=== PATIENT | male | born 1965 | race Caucasian/White ===

== ENCOUNTER 2023-02-15 16:57 | Inpatient (IN) | payer OTHER, SELFPAY ==
[2023-02-15] MEDS ORDERED: Furosemide 40 MG/4 ML VIAL ONE (17:57)
[2023-02-15 18:05] LABS: #Basophils 0.1 thou/uL (0.0-0.2); #Eosinphils 0.3 thou/uL (0.0-0.7); #Monocytes 0.6 thou/uL (0.11-0.59); #Neutrophils 4.8 thou/uL (1.40-6.50); %Basophils 0.9 % (0.0-1.0); %Eosinophils 4.9 % (0.0-10.0); %Lymphocytes 10.8 % (21.0-51.0); %Monocytes 8.8 % (0.0-10.0); %Neutrophils 74.1 % (42.0-75.0); Hematocrit 24.6 % (42.0-52.0); Hemoglobin 7.8 g/dL (14.0-18.0); Mean Corpuscular HGB CONC 31.7 g/dL (32.0-36.0); Mean Corpuscular Hemoglobin 25.8 pg (27.0-31.0); Mean Corpuscular Volume 81.5 fl (78.0-98.0); Platelet Count 295 10x3/uL (130-400); RBC Distribution Width 16.7 % (11.5-14.5); Red Blood Cell (RBC) Count 3.02 mill/uL (4.70-6.10); White Blood Cell (WBC) Count 6.5 10x3/uL (4.8-10.8)
[2023-02-15 18:43] LABS: ALT (SGPT) 15 U/L (8-55); AST (SGOT) 23 U/L (5-34); Albumin 3.4 g/dL (3.5-5.0); Alkaline Phosphatase 118 U/L (40-110); Anion Gap 20 mmol/L (10-20); BUN (Urea Nitrogen) 97 mg/dL (8.4-25.7); Bilirubin, Total 0.4 mg/dL (0.2-1.2); Calc. Creatinine Clearance 0 mL/min (70-130); Calcium 8.3 mg/dL (7.8-10.44); Carbon Dioxide 12 mmol/L (22-29); Chloride 114 mmol/L (98-107); Estimated GFR 11; Glucose 150 mg/dL (70-105); Potassium 5.2 mmol/L (3.5-5.1); Protein, Total 6.4 g/dL (6.0-8.3); Sodium 141 mmol/L (136-145)
[2023-02-15 19:30] LABS: Bacteria/HPF None Seen HPF (None Seen); Bilirubin Negative (Negative); Blood, Urine 1+ (Negative); CAUTI Indications for Culture Pelvic or flank pain; Clarity Clear (Clear); Glucose, Urine (Dipstick) 200 mg/dL (Negative); Ketone, Urine Negative (Negative); Leukocyte Negative Leu/uL (Negative); Nitrite Negative (Negative); Protein, Urine (Dipstick) 100 mg/dL (Neg-Trace); RBC/HPF 0-3 HPF (0-3); Specific Gravity, Urine 1.007 (1.002-1.036); Squamous Epithelial None Seen HPF (0-3); Urobilinogen Normal mg/dL (Less than 2); WBC/HPF 0-3 HPF (0-3); pH, Urine 5.5 (5.0-9.0)
[2023-02-15 19:44] LABS: Urine Culture Reflex No No
[2023-02-15] MEDS ORDERED: Ondansetron PF 4 MG/2 ML Vial IVP PRN (20:29)
[2023-02-15] MEDS ORDERED: Ondansetron ODT 4 MG TAB PO PRN (20:29)
[2023-02-15] MEDS ORDERED: Dextrose 50% Abboject 50 ML SYRINGE SLOW IVP PRN (20:29)
[2023-02-15] MEDS ORDERED: Glucagon 1 MG/ML KIT IM PRN (20:29)
[2023-02-15] MEDS ORDERED: Dextrose 5% in Water 1,000 ML IV PRN (20:29)
[2023-02-15] MEDS ORDERED: Acetaminophen 325 MG TAB PO PRN (20:29)
[2023-02-15] MEDS ORDERED: Furosemide 100 MG/10 ML VIAL SLOW IVP SCH (21:00)
[2023-02-15 21:24] LABS: Troponin I 0.229 ng/mL (< 0.028)
[2023-02-15 21:49] VITALS: BMI 36.8
[2023-02-15] MEDS: Heparin 5,000 UNITS/ML VIAL SC SCH (22:47)
[2023-02-15] MEDS ORDERED: Furosemide 40 MG/4 ML VIAL SLOW IVP SCH (23:30)
[2023-02-15 23:37] LABS: Creatinine, Urine 52.24 mg/dL (63-166)
[2023-02-16 05:08] LABS: Hemoglobin A1c 6.5 % (4.0-6.0)
[2023-02-16 05:32] LABS: Anion Gap 16 mmol/L (10-20); BUN (Urea Nitrogen) 96 mg/dL (8.4-25.7); Calc. Creatinine Clearance 20 mL/min (70-130); Calcium 8.5 mg/dL (7.8-10.44); Carbon Dioxide 14 mmol/L (22-29); Cardiac Risk 4.1 (Less than 4.5); Chloride 114 mmol/L (98-107); Cholesterol 116 mg/dl (< 200 Desired); Estimated GFR 11; Glucose 115 mg/dL (70-105); HDL Cholesterol 28 mg/dL (>60 Neg Risk); LDL Cholesterol, Calculated 75 mg/dL; Potassium 4.3 mmol/L (3.5-5.1); Sodium 140 mmol/L (136-145); Triglycerides 67 mg/dL (Less than 150)
[2023-02-16] MEDS ORDERED: Furosemide 100 MG/10 ML VIAL SLOW IVP SCH (06:00)
[2023-02-16] MEDS: Furosemide 40 MG/4 ML VIAL SLOW IVP SCH ×2 (06:31→13:51)
[2023-02-16] MEDS: Heparin 5,000 UNITS/ML VIAL SC SCH ×3 (09:35→21:39)
[2023-02-16] MEDS ORDERED: Epoetin (ESRD) 10,000 UNITS/ML VIAL SC SCH (11:15)
[2023-02-16] MEDS ORDERED: Albumin 25% 25 GM/100 ML BOT IVPB SCH (11:15)
[2023-02-16] MEDS ORDERED: hydrALAZINE 20 MG/ML VIAL SLOW IVP PRN (11:22)
[2023-02-16] MEDS ORDERED: Carvedilol 3.125 MG TAB PO SCH (11:30)
[2023-02-16 11:58] LABS: Iron Binding Capacity, Total 376 mcg/dL (261-462)
[2023-02-16 11:59] LABS: Iron 21 ug/dL (65-175)
[2023-02-16] MEDS: Ergocalciferol 1.25 MG(50,000 UNITS) CAP PO SCH (13:33)
[2023-02-16 13:35] LABS: Creatinine, Urine 24.54 mg/dL (63-166)
[2023-02-16] MEDS: HumaLOG 300 UNITS/3 ML VIAL SC PRN ×2 (13:51→21:38)
[2023-02-16] MEDS: EPOETIN ALFA-EPBX (ESRD) 10,000 UNITS/ML VIAL SC SCH (15:18)
[2023-02-16] MEDS: Sodium Bicarbonate Tab 325 MG TAB PO SCH ×2 (15:19→21:38)
[2023-02-16 15:47] LABS: ALT (SGPT) 13 U/L (8-55); AST (SGOT) 12 U/L (5-34); Albumin 3.4 g/dL (3.5-5.0); Alkaline Phosphatase 108 U/L (40-110); Anion Gap 15 mmol/L (10-20); BUN (Urea Nitrogen) 94 mg/dL (8.4-25.7); Bilirubin, Total 0.6 mg/dL (0.2-1.2); Calc. Creatinine Clearance 19 mL/min (70-130); Calcium 8.4 mg/dL (7.8-10.44); Carbon Dioxide 15 mmol/L (22-29); Chloride 112 mmol/L (98-107); Estimated GFR 10; Globulin 2.6 g/dL (2.4-3.5); Glucose 149 mg/dL (70-105); Potassium 4.3 mmol/L (3.5-5.1); Sodium 138 mmol/L (136-145)
[2023-02-16] MEDS: Carvedilol 3.125 MG TAB PO SCH (16:11)
[2023-02-17] MEDS: Furosemide 40 MG/4 ML VIAL SLOW IVP SCH ×2 (06:50→15:01)
[2023-02-17 08:04] LABS: Anion Gap 16 mmol/L (10-20); BUN (Urea Nitrogen) 98 mg/dL (8.4-25.7); Calc. Creatinine Clearance 18 mL/min (70-130); Calcium 8.8 mg/dL (7.8-10.44); Carbon Dioxide 15 mmol/L (22-29); Chloride 112 mmol/L (98-107); Estimated GFR 10; Glucose 90 mg/dL (70-105); Potassium 4.3 mmol/L (3.5-5.1); Sodium 139 mmol/L (136-145)
[2023-02-17] MEDS: Heparin 5,000 UNITS/ML VIAL SC SCH ×3 (08:48→20:20)
[2023-02-17] MEDS: Ferrous Sulfate 325 MG TAB PO SCH (08:48)
[2023-02-17] MEDS: Carvedilol 3.125 MG TAB PO SCH ×2 (08:48→17:22)
[2023-02-17] MEDS: Sodium Bicarbonate Tab 325 MG TAB PO SCH ×2 (08:48→15:01)
[2023-02-17 11:15] LABS: #Basophils 0.1 thou/uL (0.0-0.2); #Eosinphils 0.4 thou/uL (0.0-0.7); #Monocytes 0.6 thou/uL (0.11-0.59); #Neutrophils 3.9 thou/uL (1.40-6.50); %Basophils 1.1 % (0.0-1.0); %Eosinophils 6.5 % (0.0-10.0); %Lymphocytes 18.4 % (21.0-51.0); %Monocytes 10.4 % (0.0-10.0); %Neutrophils 63.4 % (42.0-75.0); Hematocrit 26.8 % (42.0-52.0); Hemoglobin 8.3 g/dL (14.0-18.0); Mean Corpuscular Hemoglobin 25.5 pg (27.0-31.0); Mean Corpuscular Volume 82.5 fl (78.0-98.0); Mean Platelet Volume 9.3 fL (7.4-10.4); Platelet Count 303 10x3/uL (130-400); RBC Distribution Width 16.5 % (11.5-14.5); Red Blood Cell (RBC) Count 3.25 mill/uL (4.70-6.10); White Blood Cell (WBC) Count 6.1 10x3/uL (4.8-10.8)
[2023-02-17 13:57] LABS: Protein, Urine 69 mg/dL (1-14)
[2023-02-17 14:06] LABS: Protein - 24 Hr 2208 mg/24 hr (Less than 300); Urine Total Volume 3200 mL (250-2400)
[2023-02-17] MEDS ORDERED: CEFAZOLIN 2 GM in Sodium Chloride 0.9% 100 ML IVPB SCH (14:30)
[2023-02-17] MEDS ORDERED: Tuberculin PPD 0.1 ML VIAL I-DERMAL SCH (15:15)
[2023-02-18 05:12] LABS: #Basophils 0.1 thou/uL (0.0-0.2); #Eosinphils 0.3 thou/uL (0.0-0.7); #Monocytes 0.5 thou/uL (0.11-0.59); #Neutrophils 2.8 thou/uL (1.40-6.50); %Basophils 1.3 % (0.0-1.0); %Eosinophils 7.3 % (0.0-10.0); %Lymphocytes 19.9 % (21.0-51.0); %Monocytes 11.7 % (0.0-10.0); %Neutrophils 59.6 % (42.0-75.0); Hematocrit 24.3 % (42.0-52.0); Hemoglobin 7.6 g/dL (14.0-18.0); Mean Corpuscular HGB CONC 31.3 g/dL (32.0-36.0); Mean Corpuscular Hemoglobin 25.5 pg (27.0-31.0); Mean Corpuscular Volume 81.5 fl (78.0-98.0); Mean Platelet Volume 9.1 fL (7.4-10.4); Platelet Count 296 10x3/uL (130-400); RBC Distribution Width 16.6 % (11.5-14.5); Red Blood Cell (RBC) Count 2.98 mill/uL (4.70-6.10); White Blood Cell (WBC) Count 4.6 10x3/uL (4.8-10.8)
[2023-02-18] MEDS: Furosemide 40 MG/4 ML VIAL SLOW IVP SCH ×2 (05:26→15:48)
[2023-02-18 05:46] LABS: Anion Gap 15 mmol/L (10-20); BUN (Urea Nitrogen) 102 mg/dL (8.4-25.7); Calc. Creatinine Clearance 16 mL/min (70-130); Calcium 8.7 mg/dL (7.8-10.44); Carbon Dioxide 18 mmol/L (22-29); Chloride 111 mmol/L (98-107); Estimated GFR 9; Glucose 129 mg/dL (70-105); Potassium 4.2 mmol/L (3.5-5.1); Sodium 140 mmol/L (136-145)
[2023-02-18 06:05] LABS: HBSAB Concentration Less than 8.00 mIU/mL; HBSAg Index 0.17 S/CO (0-0.99); Hep B Core Total Ab Non-Reactive (NonReactive); Hep B Surf AB Non-Reactive (NonReactive); Hep B Surf Ag Non-Reactive S/CO (NonReactive); Hep C IgG Ab Non-Reactive S/CO (NonReactive); Hep C Index 0.06 S/CO (0-0.79)
[2023-02-18] MEDS ORDERED: Sevoflurane 250 ML INH ANEST BOTTLE ONE (07:20)
[2023-02-18] MEDS: Carvedilol 3.125 MG TAB PO SCH (10:37)
[2023-02-18] MEDS: Heparin 5,000 UNITS/ML VIAL SC SCH ×3 (10:37→21:11)
[2023-02-18] MEDS ORDERED: Lidocaine 1% PF 5 ML VIAL ONE ×2 (10:42→11:19)
[2023-02-18] MEDS ORDERED: Ondansetron PF 4 MG/2 ML Vial ONE ×2 (10:42→11:19)
[2023-02-18] MEDS ORDERED: PROPOFOL 20 ML ONE (10:42)
[2023-02-18] MEDS ORDERED: fentaNYL 50 mcg/mL 1 mL Vial ONE (10:43)
[2023-02-18] MEDS ORDERED: Heparin 10,000 UNITS/ 10 ML VIAL ONE (10:57)
[2023-02-18] MEDS ORDERED: Bupivacaine 0.25% HCL 30 ML VIAL ONE (10:57)
[2023-02-18] MEDS ORDERED: EPINEPHrine 1 MG/ML VIAL ONE (10:57)
[2023-02-18] MEDS ORDERED: Lidocaine 2% PF 5 ML VIAL ONE (10:58)
[2023-02-18] MEDS ORDERED: CEFAZOLIN 2 GM VIAL ONE (11:09)
[2023-02-18] MEDS ORDERED: PHENYLEPHRINE-NS 100 MCG/ML 10 ML SYRINGE ONE ×2 (11:09→11:19)
[2023-02-18] MEDS ORDERED: Sodium Chloride 0.9% 100 ML ONE (11:09)
[2023-02-18] MEDS ORDERED: ePHEDrine Sulfate 50 MG/10 ML VIAL ONE ×2 (11:19→11:35)
[2023-02-18] MEDS ORDERED: PROPOFOL 200 MG/20 ML VIAL ONE (11:19)
[2023-02-18] MEDS: Aspirin 81 mg Enteric Coated Tablet PO SCH (13:28)
[2023-02-18] MEDS: Ferrous Sulfate 325 MG TAB PO SCH (13:28)
[2023-02-19 05:13] LABS: Anion Gap 18 mmol/L (10-20); BUN (Urea Nitrogen) 84 mg/dL (8.4-25.7); Calc. Creatinine Clearance 18 mL/min (70-130); Calcium 8.9 mg/dL (7.8-10.44); Carbon Dioxide 18 mmol/L (22-29); Chloride 110 mmol/L (98-107); Estimated GFR 10; Glucose 122 mg/dL (70-105); Potassium 4.7 mmol/L (3.5-5.1); Sodium 141 mmol/L (136-145)
[2023-02-19] MEDS: Furosemide 40 MG/4 ML VIAL SLOW IVP SCH (05:43)
[2023-02-19 08:41] LABS: #Basophils 0.1 thou/uL (0.0-0.2); #Eosinphils 0.5 thou/uL (0.0-0.7); #Monocytes 0.9 thou/uL (0.11-0.59); #Neutrophils 6.4 thou/uL (1.40-6.50); %Basophils 0.9 % (0.0-1.0); %Eosinophils 5.3 % (0.0-10.0); %Lymphocytes 9.9 % (21.0-51.0); %Monocytes 10.2 % (0.0-10.0); %Neutrophils 73.5 % (42.0-75.0); Hematocrit 27.5 % (42.0-52.0); Hemoglobin 8.6 g/dL (14.0-18.0); Mean Corpuscular HGB CONC 31.3 g/dL (32.0-36.0); Mean Corpuscular Hemoglobin 25.8 pg (27.0-31.0); Mean Corpuscular Volume 82.6 fl (78.0-98.0); Mean Platelet Volume 9.6 fL (7.4-10.4); Platelet Count 344 10x3/uL (130-400); RBC Distribution Width 16.6 % (11.5-14.5); Red Blood Cell (RBC) Count 3.33 mill/uL (4.70-6.10); White Blood Cell (WBC) Count 8.7 10x3/uL (4.8-10.8)
[2023-02-19] MEDS ORDERED: Senokot 8.6 MG TAB PO PRN (09:01)
[2023-02-19] MEDS ORDERED: Polyethylene Glycol 3350 17 GM Packet PO PRN (09:01)
[2023-02-19 09:18] LABS: Kappa Lambda Light Chain Ratio 2.17 (0.26-1.65); Kappa Light Chains 89.5 mg/L (3.3-19.4); Lambda Light Chain 41.3 mg/L (5.7-26.3)
[2023-02-19] MEDS: Heparin 5,000 UNITS/ML VIAL SC SCH ×3 (09:36→21:08)
[2023-02-19] MEDS: Aspirin 81 mg Enteric Coated Tablet PO SCH (12:14)
[2023-02-19] MEDS: Ferrous Sulfate 325 MG TAB PO SCH (12:14)
[2023-02-19] MEDS: Iron, Sodium Ferric Gluconate 250 MG in Sodium Chloride 0.9% 250 ML 250 ML IVPB SCH (12:15)
[2023-02-19] MEDS ORDERED: READ PPD TEST SITE PO SCH (15:15)
[2023-02-19 19:37] LABS: Cytoplasmic (C-ANCA) <1:20 titer (Neg:<1:20); Glomerular Basmt Membrane ABS Less than 0.2 units (0.0-0.9); Myeloperoxidase AutoAbs <0.2 units (0.0-0.9); Perinuclear (P-ANCA) <1:20 titer (Neg:<1:20); Proteinase-3 AutoAbs Less than 0.2 units (0.0-0.9)
[2023-02-19] MEDS: Atorvastatin Calcium 40 MG TAB PO SCH (21:07)
[2023-02-20 04:15] LABS: #Eosinphils 0.3 thou/uL (0.0-0.7); #Monocytes 0.8 thou/uL (0.11-0.59); #Neutrophils 2.4 thou/uL (1.40-6.50); %Basophils 0.9 % (0.0-1.0); %Eosinophils 5.8 % (0.0-10.0); %Lymphocytes 23.1 % (21.0-51.0); %Monocytes 17.3 % (0.0-10.0); %Neutrophils 52.7 % (42.0-75.0); Hematocrit 23.5 % (42.0-52.0); Hemoglobin 7.3 g/dL (14.0-18.0); Mean Corpuscular HGB CONC 31.1 g/dL (32.0-36.0); Mean Corpuscular Volume 80.5 fl (78.0-98.0); Mean Platelet Volume 9.8 fL (7.4-10.4); RBC Distribution Width 16.6 % (11.5-14.5); Red Blood Cell (RBC) Count 2.92 mill/uL (4.70-6.10); White Blood Cell (WBC) Count 4.5 10x3/uL (4.8-10.8)
[2023-02-20 04:17] LABS: Platelet Count 239 10x3/uL (130-400)
[2023-02-20 04:41] LABS: Anion Gap 14 mmol/L (10-20); BUN (Urea Nitrogen) 54 mg/dL (8.4-25.7); Calc. Creatinine Clearance 12 mL/min (70-130); Calcium 8.3 mg/dL (7.8-10.44); Carbon Dioxide 23 mmol/L (22-29); Chloride 106 mmol/L (98-107); Estimated GFR 14; Glucose 106 mg/dL (70-105); Potassium 3.9 mmol/L (3.5-5.1); Sodium 139 mmol/L (136-145)
[2023-02-20] MEDS: Ferrous Sulfate 325 MG TAB PO SCH (08:15)
[2023-02-20] MEDS: Aspirin 81 mg Enteric Coated Tablet PO SCH (08:15)
[2023-02-20] MEDS: Carvedilol 3.125 MG TAB PO SCH ×2 (08:15→16:48)
[2023-02-20] MEDS: Heparin 5,000 UNITS/ML VIAL SC SCH ×3 (08:16→20:36)
[2023-02-20] MEDS: Iron, Sodium Ferric Gluconate 250 MG in Sodium Chloride 0.9% 250 ML 250 ML IVPB SCH (09:01)
[2023-02-20] MEDS: Atorvastatin Calcium 40 MG TAB PO SCH (20:36)
[2023-02-21 04:08] LABS: Hematocrit 23.3 % (42.0-52.0); Hemoglobin 7.2 g/dL (14.0-18.0); Mean Corpuscular HGB CONC 30.9 g/dL (32.0-36.0); Mean Corpuscular Hemoglobin 25.1 pg (27.0-31.0); Mean Corpuscular Volume 81.2 fl (78.0-98.0); Mean Platelet Volume 9.8 fL (7.4-10.4); Platelet Count 231 10x3/uL (130-400); RBC Distribution Width 16.8 % (11.5-14.5); Red Blood Cell (RBC) Count 2.87 mill/uL (4.70-6.10); White Blood Cell (WBC) Count 4.8 10x3/uL (4.8-10.8)
[2023-02-21 04:34] LABS: Anion Gap 13 mmol/L (10-20); BUN (Urea Nitrogen) 61 mg/dL (8.4-25.7); Calc. Creatinine Clearance 19 mL/min (70-130); Calcium 8.6 mg/dL (7.8-10.44); Carbon Dioxide 23 mmol/L (22-29); Chloride 108 mmol/L (98-107); Estimated GFR 12; Glucose 109 mg/dL (70-105); Potassium 4.2 mmol/L (3.5-5.1); Sodium 140 mmol/L (136-145)
[2023-02-21] MEDS ORDERED: Heparin 10,000 UNITS/ 10 ML VIAL ONE (08:50)
[2023-02-21] MEDS: Carvedilol 3.125 MG TAB PO SCH (09:10)
[2023-02-21] MEDS: Heparin 5,000 UNITS/ML VIAL SC SCH ×3 (09:36→20:40)
[2023-02-21] MEDS: Aspirin 81 mg Enteric Coated Tablet PO SCH (09:36)
[2023-02-21] MEDS: Ferrous Sulfate 325 MG TAB PO SCH (09:36)
[2023-02-21] MEDS ORDERED: Carvedilol 6.25 MG TAB PO SCH (10:00)
[2023-02-21 13:06] LABS: ANA Symphony (Qualitative) Negative (Negative); ANA Symphony (Quantitative) 0.1 Ratio (< 0.7 Negative); dsDNA IgG Antibody 0.7 IU/mL (<10 Negative)
[2023-02-21] MEDS: Carvedilol 6.25 MG TAB PO SCH (18:15)
[2023-02-21] MEDS: Atorvastatin Calcium 40 MG TAB PO SCH (20:40)
[2023-02-22 05:47] LABS: Hematocrit 24.9 % (42.0-52.0); Hemoglobin 7.9 g/dL (14.0-18.0); Mean Corpuscular HGB CONC 31.7 g/dL (32.0-36.0); Mean Corpuscular Hemoglobin 26.4 pg (27.0-31.0); Mean Corpuscular Volume 83.3 fl (78.0-98.0); Mean Platelet Volume 9.5 fL (7.4-10.4); Platelet Count 225 10x3/uL (130-400); RBC Distribution Width 16.5 % (11.5-14.5); Red Blood Cell (RBC) Count 2.99 mill/uL (4.70-6.10); White Blood Cell (WBC) Count 5.6 10x3/uL (4.8-10.8)
[2023-02-22 06:13] LABS: Phosphorus 3.2 mg/dL (2.3-4.7)
[2023-02-22 06:20] LABS: ALT (SGPT) 7 U/L (8-55); AST (SGOT) 14 U/L (5-34); Albumin 3.5 g/dL (3.5-5.0); Alkaline Phosphatase 111 U/L (40-110); Anion Gap 12 mmol/L (10-20); BUN (Urea Nitrogen) 42 mg/dL (8.4-25.7); Bilirubin, Total 0.7 mg/dL (0.2-1.2); Calc. Creatinine Clearance 24 mL/min (70-130); Calcium 8.5 mg/dL (7.8-10.44); Carbon Dioxide 26 mmol/L (22-29); Chloride 104 mmol/L (98-107); Estimated GFR 16; Globulin 2.6 g/dL (2.4-3.5); Glucose 111 mg/dL (70-105); Magnesium 1.9 mg/dL (1.6-2.6); Potassium 3.6 mmol/L (3.5-5.1); Protein, Total 6.1 g/dL (6.0-8.3); Sodium 138 mmol/L (136-145)
[2023-02-22] MEDS ORDERED: Potassium Chloride 20 MEQ TAB PO SCH (08:00)
[2023-02-22] MEDS: Carvedilol 6.25 MG TAB PO SCH ×2 (09:23→19:14)
[2023-02-22] MEDS: Aspirin 81 mg Enteric Coated Tablet PO SCH (09:23)
[2023-02-22] MEDS: Ferrous Sulfate 325 MG TAB PO SCH (09:23)
[2023-02-22] MEDS ORDERED: Potassium Chloride 10 MEQ TAB PO SCH (09:30)
[2023-02-22] MEDS: Heparin 5,000 UNITS/ML VIAL SC SCH ×3 (09:38→21:13)
[2023-02-22] MEDS: Atorvastatin Calcium 40 MG TAB PO SCH (21:11)
[2023-02-23 06:34] LABS: Hematocrit 25.2 % (42.0-52.0); Hemoglobin 7.8 g/dL (14.0-18.0); Mean Platelet Volume 9.9 fL (7.4-10.4); Platelet Count 213 10x3/uL (130-400); RBC Distribution Width 17.2 % (11.5-14.5); White Blood Cell (WBC) Count 6.4 10x3/uL (4.8-10.8)
[2023-02-23 07:02] LABS: Anion Gap 13 mmol/L (10-20); BUN (Urea Nitrogen) 58 mg/dL (8.4-25.7); Calc. Creatinine Clearance 20 mL/min (70-130); Calcium 8.6 mg/dL (7.8-10.44); Carbon Dioxide 25 mmol/L (22-29); Chloride 107 mmol/L (98-107); Estimated GFR 13; Glucose 105 mg/dL (70-105); Potassium 4.1 mmol/L (3.5-5.1); Sodium 141 mmol/L (136-145)
[2023-02-23] MEDS: Carvedilol 6.25 MG TAB PO SCH ×2 (13:22→16:24)
[2023-02-23] MEDS: Heparin 5,000 UNITS/ML VIAL SC SCH ×3 (13:22→21:02)
[2023-02-23] MEDS: Ferrous Sulfate 325 MG TAB PO SCH (13:24)
[2023-02-23] MEDS: Ergocalciferol 1.25 MG(50,000 UNITS) CAP PO SCH (13:24)
[2023-02-23] MEDS: EPOETIN ALFA-EPBX (ESRD) 10,000 UNITS/ML VIAL SC SCH (13:24)
[2023-02-23] MEDS: Aspirin 81 mg Enteric Coated Tablet PO SCH (13:24)
[2023-02-23] MEDS: HumaLOG 300 UNITS/3 ML VIAL SC PRN (17:49)
[2023-02-23] MEDS: Atorvastatin Calcium 40 MG TAB PO SCH (21:02)
[2023-02-24 06:37] LABS: Hematocrit 25.7 % (42.0-52.0); Hemoglobin 7.9 g/dL (14.0-18.0); Mean Corpuscular HGB CONC 30.7 g/dL (32.0-36.0); Mean Corpuscular Hemoglobin 26.2 pg (27.0-31.0); Mean Corpuscular Volume 85.1 fl (78.0-98.0); Mean Platelet Volume 9.1 fL (7.4-10.4); Platelet Count 207 10x3/uL (130-400); RBC Distribution Width 17.8 % (11.5-14.5); Red Blood Cell (RBC) Count 3.02 mill/uL (4.70-6.10); White Blood Cell (WBC) Count 5.9 10x3/uL (4.8-10.8)
[2023-02-24 07:01] LABS: Phosphorus 2.9 mg/dL (2.3-4.7)
[2023-02-24 07:04] LABS: Anion Gap 14 mmol/L (10-20); BUN (Urea Nitrogen) 41 mg/dL (8.4-25.7); Calc. Creatinine Clearance 24 mL/min (70-130); Calcium 8.5 mg/dL (7.8-10.44); Carbon Dioxide 24 mmol/L (22-29); Chloride 104 mmol/L (98-107); Estimated GFR 17; Glucose 97 mg/dL (70-105); Magnesium 1.9 mg/dL (1.6-2.6); Potassium 3.6 mmol/L (3.5-5.1); Sodium 138 mmol/L (136-145)
[2023-02-24] MEDS ORDERED: Magnesium 2 GM/50 ML(in water) 2 GM in Premix 1 BAG IVPB SCH (08:00)
[2023-02-24] MEDS: Carvedilol 6.25 MG TAB PO SCH ×2 (08:58→17:51)
[2023-02-24] MEDS: Aspirin 81 mg Enteric Coated Tablet PO SCH (08:59)
[2023-02-24] MEDS: Ferrous Sulfate 325 MG TAB PO SCH (08:59)
[2023-02-24] MEDS: Heparin 5,000 UNITS/ML VIAL SC SCH ×3 (08:59→21:19)
[2023-02-24] MEDS: Atorvastatin Calcium 40 MG TAB PO SCH (21:19)
[2023-02-25 06:40] LABS: Hematocrit 26.8 % (42.0-52.0); Hemoglobin 8.4 g/dL (14.0-18.0); Mean Corpuscular HGB CONC 31.3 g/dL (32.0-36.0); Mean Corpuscular Hemoglobin 26.8 pg (27.0-31.0); Mean Corpuscular Volume 85.4 fl (78.0-98.0); Mean Platelet Volume 10.2 fL (7.4-10.4); Platelet Count 216 10x3/uL (130-400); RBC Distribution Width 18.2 % (11.5-14.5); Red Blood Cell (RBC) Count 3.14 mill/uL (4.70-6.10); White Blood Cell (WBC) Count 6.1 10x3/uL (4.8-10.8)
[2023-02-25 07:07] LABS: Anion Gap 16 mmol/L (10-20); BUN (Urea Nitrogen) 55 mg/dL (8.4-25.7); Calc. Creatinine Clearance 20 mL/min (70-130); Calcium 8.7 mg/dL (7.8-10.44); Carbon Dioxide 22 mmol/L (22-29); Chloride 105 mmol/L (98-107); Estimated GFR 14; Glucose 100 mg/dL (70-105); Sodium 139 mmol/L (136-145)
[2023-02-25] MEDS: Carvedilol 6.25 MG TAB PO SCH ×2 (08:28→17:00)
[2023-02-25] MEDS: Heparin 5,000 UNITS/ML VIAL SC SCH ×2 (08:29→14:59)
[2023-02-25] MEDS: Aspirin 81 mg Enteric Coated Tablet PO SCH (08:31)
[2023-02-25] MEDS: Ferrous Sulfate 325 MG TAB PO SCH (08:31)
[2023-02-25] MEDS ORDERED: Heparin 10,000 UNITS/ 10 ML VIAL ONE (08:43)
[2023-02-25] MEDS ORDERED: EPOETIN ALFA-EPBX (ESRD) 10,000 UNITS/ML VIAL IVP SCH (12:00)
[2023-02-25 19:12] VITALS: BP 138/65; TEMP 98.1
== END 2023-02-25 19:13 | disposition home or self-care (01) | DRG 291 ==
LOC: ERS 16:57 → 2NO 19:47 → T4-B 02-21 19:10
PROVIDERS: ADMIT Family Medicine; ATTEND Family Medicine
PROC: 30233J1 Transfusion of Nonautologous Serum Albumin into Peripheral Vein, Percutaneous Approach (ICD-10-PCS; 2023-02-16)
PROC: 0JH63XZ Insertion of Tunneled Vascular Access Device into Chest Subcutaneous Tissue and Fascia, Percutaneous Approach (ICD-10-PCS; principal; 2023-02-18)
PROC: 05H433Z Insertion of Infusion Device into Left Innominate Vein, Percutaneous Approach (ICD-10-PCS; 2023-02-18)
PROC: B51V1ZA Fluoroscopy of Other Veins using Low Osmolar Contrast, Guidance (ICD-10-PCS; 2023-02-18)
PROC: 5A1D70Z Performance of Urinary Filtration, Intermittent, Less than 6 Hours Per Day (ICD-10-PCS; 2023-02-18)
PROC: 5A1D70Z Performance of Urinary Filtration, Intermittent, Less than 6 Hours Per Day (ICD-10-PCS; 2023-02-19)
PROC: 30233N1 Transfusion of Nonautologous Red Blood Cells into Peripheral Vein, Percutaneous Approach (ICD-10-PCS; 2023-02-21)
PROC: 5A1D70Z Performance of Urinary Filtration, Intermittent, Less than 6 Hours Per Day (ICD-10-PCS; 2023-02-21)
PROC: 5A1D70Z Performance of Urinary Filtration, Intermittent, Less than 6 Hours Per Day (ICD-10-PCS; 2023-02-23)
PROC: 5A1D70Z Performance of Urinary Filtration, Intermittent, Less than 6 Hours Per Day (ICD-10-PCS; 2023-02-25)
DX: I13.2 Hypertensive heart and chronic kidney disease with heart failure and with stage 5 chronic kidney disease, or end stage renal disease (principal); I50.23 Acute on chronic systolic (congestive) heart failure; N18.6 End stage renal disease; N17.9 Acute kidney failure, unspecified; I47.10 Supraventricular tachycardia, unspecified; E87.5 Hyperkalemia; Z66 Do not resuscitate; D63.1 Anemia in chronic kidney disease; E55.9 Vitamin D deficiency, unspecified; E66.9 Obesity, unspecified; E11.319 Type 2 diabetes mellitus with unspecified diabetic retinopathy without macular edema; E11.21 Type 2 diabetes mellitus with diabetic nephropathy; I35.0 Nonrheumatic aortic (valve) stenosis; E87.6 Hypokalemia; I25.10 Atherosclerotic heart disease of native coronary artery without angina pectoris; D50.9 Iron deficiency anemia, unspecified; H54.7 Unspecified visual loss; H35.30 Unspecified macular degeneration; Z68.31 Body mass index [BMI] 31.0-31.9, adult; Z88.0 Allergy status to penicillin
CPT/HCPCS: 36415; 36416; 36430; 71045; 76770; 76870; 80048; 80053; 80061; 81001; 82306; 82570; 82728; 83036; 83516; 83540; 83550; 83735; 83880; 83883; 83970; 84100; 84156; 84443; 84484; 84540; 85025; 85027; 86037; 86038; 86225; 86580; 86704; 86850; 86900; 86901; 90935; 93005; 93306; 93976; 96374; 97139; C1752; G0257; J0171; J1644; J1815; J1940; J2001; J2405; J2704; J2916; J3010; J3475; J3490; J7050; P9016; P9047; Q5105; S0020

== ENCOUNTER 2023-11-08 14:14 | Outpatient (CLI) | payer MEDICARE, MEDICAID ==
[2023-11-08 16:10] LABS: #Basophils 0.06 10x3/uL (0.0-0.2); %Basophils 0.8 % (0.0-1.0); %Lymphocytes 18.5 % (21.0-51.0); %Monocytes 12.7 % (0.0-10.0); %Neutrophils 64.7 % (42.0-75.0); Hematocrit 33.9 % (42.0-52.0); Hemoglobin 11.2 g/dL (14.0-18.0); Mean Corpuscular Hemoglobin 30.9 pg (27.0-31.0); Mean Corpuscular Volume 93.6 fL (78.0-98.0); Mean Platelet Volume 10.3 fL (7.4-10.4); Platelet Count 151 10x3/uL (130-400); RBC Distribution Width 15.5 % (11.5-14.5); Red Blood Cell (RBC) Count 3.62 mill/uL (4.70-6.10)
[2023-11-08 16:25] LABS: ALT (SGPT) 16 U/L (8-55); AST (SGOT) 19 U/L (5-34); Albumin 3.6 g/dL (3.5-5.0); Alkaline Phosphatase 104 U/L (40-110); Anion Gap 15 mmol/L (10-20); BUN (Urea Nitrogen) 34 mg/dL (8.4-25.7); Bilirubin, Total 0.5 mg/dL (0.2-1.2); Calc. Creatinine Clearance 0 mL/min (70-130); Calcium 9.5 mg/dL (7.8-10.44); Carbon Dioxide 30 mmol/L (22-29); Chloride 97 mmol/L (98-107); Estimated GFR 12; Globulin 3.9 g/dL (2.4-3.5); Glucose 120 mg/dL (70-105); Potassium 3.8 mmol/L (3.5-5.1); Protein, Total 7.5 g/dL (6.0-8.3); Sodium 138 mmol/L (136-145)
== END 2023-11-08 14:15 | disposition home or self-care (01) ==
LOC: LABBT 14:14
PROVIDERS: ATTEND Internal Medicine Cardiovascular Disease
DX: Z01.818 Encounter for other preprocedural examination (principal); L97.529 Non-pressure chronic ulcer of other part of left foot with unspecified severity; L97.519 Non-pressure chronic ulcer of other part of right foot with unspecified severity
CPT/HCPCS: 80053; 85025; 93005; 93010

== ENCOUNTER 2023-11-21 21:30 | Inpatient (IN) | payer MEDICARE, MEDICAID ==
[~2023-11-21 21:30] MED LIST: Iopamidol-370 76% 500 ML MDV (1 ML CHARGE) ONE
[2023-11-21 21:47] LABS: #Basophils 0.03 10x3/uL (0.0-0.2); %Basophils 0.4 % (0.0-1.0); %Eosinophils 0.7 % (0.0-10.0); %Lymphocytes 12.1 % (21.0-51.0); %Monocytes 7.7 % (0.0-10.0); %Neutrophils 78.4 % (42.0-75.0); Hematocrit 20.8 % (42.0-52.0); Hemoglobin 6.8 g/dL (14.0-18.0); Mean Corpuscular HGB CONC 32.7 g/dL (32.0-36.0); Mean Corpuscular Hemoglobin 32.1 pg (27.0-31.0); Mean Corpuscular Volume 98.1 fL (78.0-98.0); Mean Platelet Volume 9.2 fL (7.4-10.4); Platelet Count 130 10x3/uL (130-400); RBC Distribution Width 16.3 % (11.5-14.5); Red Blood Cell (RBC) Count 2.12 mill/uL (4.70-6.10)
[2023-11-21] MEDS ORDERED: Ondansetron PF 4 MG/2 ML Vial ONE ×2 (21:47→22:58)
[2023-11-21] MEDS ORDERED: fentaNYL 50 mcg/mL 1 mL Vial ONE ×2 (22:06→23:23)
[2023-11-21 22:08] LABS: Troponin I 0.197 ng/mL (< 0.028)
[2023-11-21 22:40] LABS: Alkaline Phosphatase 97 U/L (40-110); Bilirubin, Total 0.3 mg/dL (0.2-1.2); Lipase 54 U/L (8-78)
[2023-11-21 22:41] LABS: BUN (Urea Nitrogen) 49 mg/dL (8.4-25.7); Calc. Creatinine Clearance 0 mL/min (70-130); Estimated GFR 10
[2023-11-21 22:42] LABS: ALT (SGPT) 32 U/L (8-55); AST (SGOT) 31 U/L (5-34); Magnesium 1.6 mg/dL (1.6-2.6)
[2023-11-21] MEDS ORDERED: NOREPINEPHRINE 8 MG/250 ML-D5W 250 ML ONE (22:58)
[2023-11-21 22:59] LABS: Albumin 2.5 g/dL (3.5-5.0); Anion Gap 17 mmol/L (10-20); Calcium 6.9 mg/dL (7.8-10.44); Carbon Dioxide 16 mmol/L (22-29); Chloride 113 mmol/L (98-107); Globulin 2.7 g/dL (2.4-3.5); Glucose 161 mg/dL (70-105); Potassium 3.8 mmol/L (3.5-5.1); Protein, Total 5.2 g/dL (6.0-8.3); Sodium 142 mmol/L (136-145)
[2023-11-21] MEDS ORDERED: CALCIUM GLUC 1 GM/NS 50 ML IV Bag ONE (23:06)
[2023-11-22] MEDS ORDERED: Dextrose 5% in Water 1,000 ML IV PRN (01:05)
[2023-11-22] MEDS ORDERED: Dextrose 50% Abboject 50 ML SYRINGE SLOW IVP PRN (01:05)
[2023-11-22] MEDS ORDERED: Glucagon 1 MG/ML KIT IM PRN (01:05)
[2023-11-22] MEDS ORDERED: Insulin Lispro 100 UNIT/ML 10 ML VIAL SC PRN (01:08)
[2023-11-22 02:43] LABS: Lactic Acid 1.54 mmol/L (0.5-2.2)
[2023-11-22] MEDS: Magnesium 2 GM/50 ML(in water) 2 GM in Premix 1 BAG IVPB SCH (03:12)
[2023-11-22 03:13] LABS: Troponin I 5.677 ng/mL (< 0.028)
[2023-11-22 03:50] LABS: Carbon Dioxide 16 mmol/L (22-29); Chloride 100 mmol/L (98-107); Potassium 5.6 mmol/L (3.5-5.1); Sodium 136 mmol/L (136-145)
[2023-11-22 03:51] LABS: Albumin 3.3 g/dL (3.5-5.0); BUN (Urea Nitrogen) 66 mg/dL (8.4-25.7); Bilirubin, Total 1.3 mg/dL (0.2-1.2); Calc. Creatinine Clearance 10 mL/min (70-130); Calcium 9.1 mg/dL (7.6-10.4); Estimated GFR 7; Globulin 3.9 g/dL (2.4-3.5); Glucose 161 mg/dL (70-105); Protein, Total 7.2 g/dL (6.0-8.3)
[2023-11-22 03:52] LABS: ALT (SGPT) 127 U/L (8-55); AST (SGOT) 153 U/L (5-34); Alkaline Phosphatase 155 U/L (40-110); Iron 171 ug/dL (65-175)
[2023-11-22 03:54] LABS: Anion Gap 26 mmol/L (10-20)
[2023-11-22 04:14] LABS: Thyroid Stimulating Hormone 3.2368 uIU/mL (0.35-4.94)
[2023-11-22 04:24] LABS: Iron Binding Capacity, Total 208 mcg/dL (261-462)
[2023-11-22 04:31] LABS: Hematocrit 41.4 % (42.0-52.0); Hemoglobin 13.4 g/dL (14.0-18.0); Mean Corpuscular HGB CONC 32.4 g/dL (32.0-36.0); Mean Corpuscular Hemoglobin 30.5 pg (27.0-31.0); Mean Corpuscular Volume 94.3 fL (78.0-98.0); Mean Platelet Volume 9.9 fL (7.4-10.4); Platelet Count 187 10x3/uL (130-400); RBC Distribution Width 18.1 % (11.5-14.5); Red Blood Cell (RBC) Count 4.39 mill/uL (4.70-6.10)
[2023-11-22 04:45] LABS: Phosphorus 5.9 mg/dL (2.3-4.7)
[2023-11-22 04:49] LABS: Troponin I 16.527 ng/mL (< 0.028)
[2023-11-22 04:54] LABS: Anisocytosis SLIGHT = 6-15 cells HPF (0-5); Band 3 % (5-11); Burr Cells SLIGHT = 2-5 cells HPF (0-1); Lymphocytes 5 % (21-51); Monocytes 1 % (0-10); Neutrophil 91 % (42-75); Ovalocytes SLIGHT = 2-5 cells HPF (0-1); Platelet Adequacy Comment Platelets Normal; Polychromasia SLIGHT = 2-3 cells HPF (0-2); Target Cells SLIGHT = 2-5 cells HPF (0-1)
[2023-11-22 05:11] LABS: Ferritin 17290.03 ng/mL (22-322)
[2023-11-22 05:37] LABS: Bacteria/HPF None Seen HPF (None Seen); Bilirubin Negative (Negative); Blood, Urine 3+ (Negative); Clarity Clear (Clear); Glucose, Urine (Dipstick) 200 mg/dL (Negative); Ketone, Urine Trace mg/dL (Negative); Leukocyte Negative Leu/uL (Negative); Nitrite Negative (Negative); Protein, Urine (Dipstick) 300 mg/dL (Neg-Trace); Squamous Epithelial 0-3 HPF (0-3); Urobilinogen Normal mg/dL (Less than 2); WBC/HPF 0-3 HPF (0-3); pH, Urine 6.5 (5.0-9.0)
[2023-11-22 05:38] LABS: Sperm/HPF 4+ HPF (None Seen)
[2023-11-22] MEDS ORDERED: Iopamidol 370 76% 100 ML VIAL ONE (07:18)
[2023-11-22 07:49] LABS: Glucose 189 mg/dL (70-105)
[2023-11-22 08:06] LABS: Troponin I 77.375 ng/mL (< 0.028)
[2023-11-22] MEDS ORDERED: Communication Order-Pharmacy FS SCH (09:00)
[2023-11-22] MEDS: Sevelamer Carbonate 800 MG TAB PO SCH (09:09)
[2023-11-22] MEDS: Milk Of Magnesia 30 ML UDCUP PO SCH (09:09)
[2023-11-22] MEDS: Senokot S 8.6-50 MG TAB PO SCH (09:09)
[2023-11-22 09:29] LABS: #Basophils 0.05 10x3/uL (0.0-0.2); #Eosinphils Less than 0.03 10x3/uL (0.0-0.7); %Basophils 0.4 % (0.0-1.0); %Eosinophils 0.1 % (0.0-10.0); %Lymphocytes 8.3 % (21.0-51.0); %Monocytes 5.4 % (0.0-10.0); %Neutrophils 85.3 % (42.0-75.0); Hematocrit 39.7 % (42.0-52.0); Hemoglobin 13.1 g/dL (14.0-18.0); Mean Corpuscular Hemoglobin 29.8 pg (27.0-31.0); Mean Corpuscular Volume 90.4 fL (78.0-98.0); Mean Platelet Volume 9.5 fL (7.4-10.4); Platelet Count 225 10x3/uL (130-400); Red Blood Cell (RBC) Count 4.39 mill/uL (4.70-6.10)
[2023-11-22 11:45] LABS: Glucose 116 mg/dL (70-105)
[2023-11-22] MEDS ORDERED: Adenosine 6 mg (2 mL) VIAL ONE (14:06)
[2023-11-22] MEDS ORDERED: Nitroglycerin 50 MG/250 ML BOT 0 ML ONE (14:06)
[2023-11-22] MEDS ORDERED: Atropine Sulfate 1 mg/10 ml Syringe ONE (14:06)
[2023-11-22] MEDS ORDERED: Heparin 10,000 UNITS/ 10 ML VIAL ONE (14:06)
[2023-11-22] MEDS ORDERED: Midazolam HCl 2 mg/2 ml Vial ONE (14:06)
[2023-11-22] MEDS ORDERED: fentaNYL 50 mcg/mL 1 mL Vial ONE (14:06)
[2023-11-22] MEDS ORDERED: Nitroglycerin 0.4 MG TAB (25 Tab Bottle) SL PRN (15:00)
[2023-11-22] MEDS ORDERED: Acetaminophen/Codeine 30-300mg Tablet PO PRN (15:00)
[2023-11-22 15:52] LABS: Hematocrit 39.5 % (42.0-52.0); Hemoglobin 13.3 g/dL (14.0-18.0); Platelet Count 228 10x3/uL (130-400)
[2023-11-22] MEDS: Calcitriol 0.25 MCG CAP PO SCH (16:52)
[2023-11-22] MEDS: Heparin 25,000 units/D5W 500 ML IVPB SCH (17:22)
[2023-11-22] MEDS: Atorvastatin Calcium 40 MG TAB PO SCH (21:08)
[2023-11-23 00:30] LABS: Glucose 118 mg/dL (70-105)
[2023-11-23] MEDS: Heparin 10,000 UNITS/ 10 ML VIAL SLOW IVP SCH (01:52)
[2023-11-23 09:02] LABS: #Basophils 0.05 10x3/uL (0.0-0.2); %Basophils 0.3 % (0.0-1.0); %Eosinophils 0.2 % (0.0-10.0); %Lymphocytes 6.5 % (21.0-51.0); %Monocytes 7.4 % (0.0-10.0); %Neutrophils 85.1 % (42.0-75.0); Hematocrit 41.6 % (42.0-52.0); Hemoglobin 13.9 g/dL (14.0-18.0); Mean Corpuscular HGB CONC 33.4 g/dL (32.0-36.0); Mean Corpuscular Hemoglobin 30.4 pg (27.0-31.0); Mean Platelet Volume 9.1 fL (7.4-10.4); Platelet Count 238 10x3/uL (130-400); RBC Distribution Width 18.2 % (11.5-14.5); Red Blood Cell (RBC) Count 4.57 mill/uL (4.70-6.10)
[2023-11-23 09:50] LABS: Calcium 9.1 mg/dL (7.8-10.44)
[2023-11-23 09:51] LABS: ALT (SGPT) 94 U/L (8-55); AST (SGOT) 214 U/L (5-34); Albumin 3.3 g/dL (3.5-5.0); Alkaline Phosphatase 140 U/L (40-110); Anion Gap 23 mmol/L (10-20); BUN (Urea Nitrogen) 53 mg/dL (8.4-25.7); Bilirubin, Total 1.1 mg/dL (0.2-1.2); Calc. Creatinine Clearance 12 mL/min (70-130); Carbon Dioxide 23 mmol/L (22-29); Chloride 92 mmol/L (98-107); Estimated GFR 8; Globulin 4.4 g/dL (2.4-3.5); Glucose 207 mg/dL (70-105); Potassium 4.6 mmol/L (3.5-5.1); Protein, Total 7.7 g/dL (6.0-8.3); Sodium 133 mmol/L (136-145)
[2023-11-23] MEDS: Insulin Lispro 100 UNIT/ML 10 ML VIAL SC PRN (11:23)
[2023-11-23] MEDS: Sodium Chloride 0.9% 200 ML IV PRN (14:20)
[2023-11-23] MEDS: Sodium Chloride 0.9% 500 ML IVPB SCH (14:51)
[2023-11-24 09:46] LABS: #Basophils 0.06 10x3/uL (0.0-0.2); %Basophils 0.5 % (0.0-1.0); %Eosinophils 0.6 % (0.0-10.0); %Lymphocytes 6.9 % (21.0-51.0); %Monocytes 8.4 % (0.0-10.0); Hematocrit 34.1 % (42.0-52.0); Hemoglobin 11.3 g/dL (14.0-18.0); Mean Corpuscular HGB CONC 33.1 g/dL (32.0-36.0); Mean Corpuscular Hemoglobin 30.5 pg (27.0-31.0); Mean Corpuscular Volume 91.9 fL (78.0-98.0); Mean Platelet Volume 9.2 fL (7.4-10.4); Platelet Count 207 10x3/uL (130-400); RBC Distribution Width 17.2 % (11.5-14.5); Red Blood Cell (RBC) Count 3.71 mill/uL (4.70-6.10)
[2023-11-24 10:07] LABS: ALT (SGPT) 55 U/L (8-55); AST (SGOT) 73 U/L (5-34); Albumin 2.8 g/dL (3.5-5.0); Alkaline Phosphatase 104 U/L (40-110); Anion Gap 19 mmol/L (10-20); BUN (Urea Nitrogen) 73 mg/dL (8.4-25.7); Bilirubin, Total 1.2 mg/dL (0.2-1.2); Calc. Creatinine Clearance 10 mL/min (70-130); Calcium 8.6 mg/dL (7.8-10.44); Carbon Dioxide 23 mmol/L (22-29); Chloride 95 mmol/L (98-107); Estimated GFR 6; Globulin 3.6 g/dL (2.4-3.5); Glucose 184 mg/dL (70-105); Potassium 4.2 mmol/L (3.5-5.1); Protein, Total 6.4 g/dL (6.0-8.3); Sodium 133 mmol/L (136-145)
[2023-11-25] MEDS: Magnesium 2 GM/50 ML(in water) 2 GM in Premix 1 BAG IVPB SCH ×2 (04:58→05:16)
[2023-11-25] MEDS: Amiodarone 150 MG/3 ML VIAL IVP SCH (04:58)
[2023-11-25] MEDS: Sodium Chloride 0.9% 500 ML IV SCH (05:00)
[2023-11-25 06:03] LABS: ALT (SGPT) 44 U/L (8-55); AST (SGOT) 45 U/L (5-34); Albumin 2.8 g/dL (3.5-5.0); Alkaline Phosphatase 102 U/L (40-110); Anion Gap 23 mmol/L (10-20); BUN (Urea Nitrogen) 86 mg/dL (8.4-25.7); BUN (Urea Nitrogen) 90 mg/dL (8.4-25.7); Bilirubin, Total 0.9 mg/dL (0.2-1.2); Calc. Creatinine Clearance 10 mL/min (70-130); Calc. Creatinine Clearance 9 mL/min (70-130); Calcium 8.3 mg/dL (7.8-10.44); Calcium 8.4 mg/dL (7.8-10.44); Carbon Dioxide 19 mmol/L (22-29); Carbon Dioxide 20 mmol/L (22-29); Chloride 94 mmol/L (98-107); Estimated GFR 6; Globulin 3.6 g/dL (2.4-3.5); Glucose 188 mg/dL (70-105); Glucose 225 mg/dL (70-105); Magnesium 4.4 mg/dL (1.6-2.6); Potassium 3.9 mmol/L (3.5-5.1); Protein, Total 6.4 g/dL (6.0-8.3); Sodium 132 mmol/L (136-145); Sodium 133 mmol/L (136-145)
[2023-11-25 06:05] LABS: #Basophils 0.04 10x3/uL (0.0-0.2); %Basophils 0.4 % (0.0-1.0); %Eosinophils 0.9 % (0.0-10.0); %Lymphocytes 8.4 % (21.0-51.0); %Monocytes 5.4 % (0.0-10.0); %Neutrophils 84.3 % (42.0-75.0); Hematocrit 33.5 % (42.0-52.0); Hemoglobin 11.2 g/dL (14.0-18.0); Mean Corpuscular HGB CONC 33.4 g/dL (32.0-36.0); Mean Corpuscular Hemoglobin 30.8 pg (27.0-31.0); Mean Platelet Volume 9.8 fL (7.4-10.4); Platelet Count 196 10x3/uL (130-400); RBC Distribution Width 16.9 % (11.5-14.5); Red Blood Cell (RBC) Count 3.64 mill/uL (4.70-6.10)
[2023-11-25 06:07] LABS: #Basophils 0.04 10x3/uL (0.0-0.2); %Basophils 0.4 % (0.0-1.0); %Eosinophils 0.9 % (0.0-10.0); %Monocytes 6.4 % (0.0-10.0); %Neutrophils 83.6 % (42.0-75.0); Hematocrit 33.6 % (42.0-52.0); Hemoglobin 11.1 g/dL (14.0-18.0); Mean Corpuscular Hemoglobin 30.5 pg (27.0-31.0); Mean Corpuscular Volume 92.3 fL (78.0-98.0); Mean Platelet Volume 9.4 fL (7.4-10.4); Platelet Count 190 10x3/uL (130-400); RBC Distribution Width 16.9 % (11.5-14.5); Red Blood Cell (RBC) Count 3.64 mill/uL (4.70-6.10)
[2023-11-25] MEDS: NOREPINEPHRINE 8 MG/250 ML-D5W 0 ML ONE (06:12)
[2023-11-25] MEDS: Acetaminophen 325 MG TAB PO PRN (06:16)
[2023-11-25 06:52] VITALS: BMI 29.5
[2023-11-25 07:37] LABS: Troponin I 132.067 ng/mL (< 0.028)
[2023-11-25] MEDS ORDERED: Vancomycin 1 GM in Premix 1 BAG IVPB SCH (10:00)
[2023-11-25] MEDS: Amiodarone 450 MG in Dextrose 5% in Water 250 ML IVPB SCH (10:57)
[2023-11-25] MEDS ORDERED: Vancomycin Diaylsis Sliding Scale (Wt 71-99) FS SCH (11:00)
[2023-11-25 11:56] LABS: Hemoglobin A1c 5.9 % (4.0-6.0)
[2023-11-25] MEDS: Vancomycin (BATCH) 1.5 GM in Premix 1 BAG IVPB SCH (12:17)
[2023-11-25 12:31] LABS: Cardiac Risk 2.1 (Less than 4.5)
[2023-11-25] MEDS ORDERED: Heparin 10,000 UNITS/ 10 ML VIAL SLOW IVP SCH (18:45)
[2023-11-25] MEDS: Heparin 25,000 units/D5W 500 ML IVPB SCH (19:14)
[2023-11-25] MEDS: Communication Order-Pharmacy FS ONE (20:28)
[2023-11-26] MEDS: Acetaminophen/Codeine 30-300mg Tablet PO PRN (00:09)
[2023-11-26] MEDS: Albumin 25% 25 GM (100 mL) BOT IVPB SCH (03:59)
[2023-11-26] MEDS: Sodium Chloride 0.9% 250 ML IV SCH (03:59)
[2023-11-26 04:20] LABS: #Basophils 0.04 10x3/uL (0.0-0.2); %Basophils 0.4 % (0.0-1.0); %Lymphocytes 8.5 % (21.0-51.0); %Monocytes 7.7 % (0.0-10.0); Hematocrit 31.3 % (42.0-52.0); Hemoglobin 10.1 g/dL (14.0-18.0); Mean Corpuscular HGB CONC 32.3 g/dL (32.0-36.0); Mean Corpuscular Hemoglobin 30.1 pg (27.0-31.0); Mean Corpuscular Volume 93.4 fL (78.0-98.0); Mean Platelet Volume 9.5 fL (7.4-10.4); Platelet Count 187 10x3/uL (130-400); Red Blood Cell (RBC) Count 3.35 mill/uL (4.70-6.10)
[2023-11-26 04:36] LABS: ALT (SGPT) 34 U/L (8-55); AST (SGOT) 26 U/L (5-34); Albumin 2.6 g/dL (3.5-5.0); Alkaline Phosphatase 100 U/L (40-110); Anion Gap 19 mmol/L (10-20); BUN (Urea Nitrogen) 58 mg/dL (8.4-25.7); Bilirubin, Total 1.1 mg/dL (0.2-1.2); Calc. Creatinine Clearance 13 mL/min (70-130); Calcium 8.5 mg/dL (7.8-10.44); Carbon Dioxide 21 mmol/L (22-29); Chloride 99 mmol/L (98-107); Estimated GFR 9; Globulin 3.6 g/dL (2.4-3.5); Glucose 125 mg/dL (70-105); Potassium 4.2 mmol/L (3.5-5.1); Protein, Total 6.2 g/dL (6.0-8.3); Sodium 135 mmol/L (136-145)
[2023-11-26] MEDS ORDERED: EPINEPHrine 1 MG/ML VIAL ONE (06:16)
[2023-11-26] MEDS ORDERED: Dexamethasone 4 mg/ml Vial ONE (06:16)
[2023-11-26] MEDS ORDERED: PHENYLEPHRINE-NS 100 MCG/ML 10 ML SYRINGE ONE ×3 (06:16→08:18)
[2023-11-26] MEDS ORDERED: Albumin 5% 500 ML ONE (06:17)
[2023-11-26] MEDS ORDERED: Bupivacaine PF 0.5% 30 ML VIAL ONE (06:17)
[2023-11-26] MEDS ORDERED: Phenylephrine 40 MG/NS 250 ML 250 ML ONE (06:28)
[2023-11-26] MEDS ORDERED: Etomidate 40 MG (20 mL) VIAL ONE (06:28)
[2023-11-26] MEDS ORDERED: NOREPINEPHRINE 8 MG/250 ML-D5W 250 ML ONE (06:28)
[2023-11-26] MEDS ORDERED: Rocuronium Bromide 10 MG/ML (10ML VIAL) ONE (06:28)
[2023-11-26] MEDS ORDERED: Heparin 10,000 UNITS/1 ML VIAL 30,000 UNITS in Sodium Chloride 0.9% 1,000 ML FS SCH (06:30)
[2023-11-26] MEDS ORDERED: Aminocaproic Acid 5 GM/20 ML VIAL ONE ×2 (06:31→07:57)
[2023-11-26] MEDS ORDERED: Midazolam HCl 2 mg/2 ml Vial ONE ×2 (06:51→06:52)
[2023-11-26] MEDS ORDERED: Fentanyl 250 MCG/5 ML VIAL ONE (06:52)
[2023-11-26] MEDS ORDERED: ePHEDrine Sulfate 50 MG/10 ML VIAL ONE (07:03)
[2023-11-26] MEDS ORDERED: Clindamycin/D5W 900 MG in Premix 1 BAG IVPB SCH (07:30)
[2023-11-26] MEDS ORDERED: Vancomycin 1 GM in Premix 1 BAG IVPB SCH (07:30)
[2023-11-26] MEDS ORDERED: Vecuronium 10 MG VIAL ONE (07:57)
[2023-11-26] MEDS ORDERED: Protamine Sulfate 250 MG/25 ML VIAL ONE (07:57)
[2023-11-26] MEDS ORDERED: Cardioplegic Soln 1,000 ML BAG ONE (07:57)
[2023-11-26] MEDS ORDERED: Potassium Chloride 60 mEq (30 mL) VIAL ONE (07:57)
[2023-11-26] MEDS ORDERED: Magnesium 5 GM/10 ML VIAL ONE (07:57)
[2023-11-26] MEDS ORDERED: Lidocaine 2% PF 100 mg/5 ml Syringe ONE (07:57)
[2023-11-26] MEDS ORDERED: Vancomycin 1 GM VIAL ONE (07:57)
[2023-11-26] MEDS ORDERED: Heparin 30,000 units/30 ml VIAL ONE (07:57)
[2023-11-26] MEDS ORDERED: Esmolol 100 MG/10 ML VIAL ONE (07:57)
[2023-11-26] MEDS ORDERED: Sodium Bicarb 50 mEq/50 ML VIAL ONE (07:57)
[2023-11-26] MEDS ORDERED: Heparin 5,000 UNITS/ML VIAL ONE (07:57)
[2023-11-26] MEDS ORDERED: Thrombin 5000 UNITS/5 ML VIAL ONE (07:57)
[2023-11-26] MEDS ORDERED: Milrinone 10 MG/10 ML VIAL ONE (08:36)
[2023-11-26] MEDS ORDERED: Insulin Regular, Human 100 UNIT/ML 10 ML VIAL ONE (12:34)
[2023-11-26] MEDS ORDERED: Potassium Chloride 20 MEQ (100 mL) BAG IVPB PRN (12:48)
[2023-11-26] MEDS ORDERED: NOREPINEPHRINE 8 MG/250 ML-D5W 250 ML IVPB PRN (12:48)
[2023-11-26] MEDS ORDERED: Guaifenesin DM 100-10/5 ML UDCUP PO PRN (12:48)
[2023-11-26] MEDS ORDERED: Nitroglycerin 50 MG/250 ML BOT 250 ML IVPB PRN (12:48)
[2023-11-26] MEDS ORDERED: Ondansetron PF 4 MG/2 ML Vial IVP PRN (12:48)
[2023-11-26] MEDS ORDERED: traMADol HCl 50 MG TAB PO PRN ×2 (12:48)
[2023-11-26] MEDS ORDERED: Bisacodyl 10 MG SUPP PR PRN (12:48)
[2023-11-26] MEDS ORDERED: hydrALAZINE 20 MG/ML VIAL SLOW IVP PRN (12:48)
[2023-11-26] MEDS ORDERED: Albumin 5% 12.5 GM (250 mL) BOT IVPB PRN ×2 (12:48)
[2023-11-26] MEDS ORDERED: Ipratropium/Albuterol 3 ML NEB NEB PRN (12:48)
[2023-11-26 13:11] LABS: Actual Bicarbonate (HCO3a) 19.5 mEq/L (22-28); Base Excess (BEa) -4.5 mEq/L (-2.0 to +3.0); CO2 Tension 31.9 mmHg (35.0-45.0); Calcium, Ionized (arterial) 1.08 mmol/L (1.12-1.30); Carboxyhemoglobin (COHb) 0.2 gm% (0.0-3.0); Hematocrit-ABG 30 % (42.0-52.0); Hemoglobin (Hb) 10.1 g/dL (14.0-18.0); O2 Tension (PaO2), arterial 151.2 mmHg (> 80.0); Potassium - ABG Lab 4.27 mmol/L (3.70-5.30); pH, Arterial 7.403 (7.35-7.45)
[2023-11-26 13:12] LABS: ALV-art Gradient 236.725 mmHg (0-20); Puncture Site Arterial Line
[2023-11-26 13:21] LABS: #Basophils 0.05 10x3/uL (0.0-0.2); %Basophils 0.4 % (0.0-1.0); %Eosinophils 0.9 % (0.0-10.0); %Lymphocytes 5.3 % (21.0-51.0); %Neutrophils 87.1 % (42.0-75.0); Hematocrit 28.5 % (42.0-52.0); Hemoglobin 9.4 g/dL (14.0-18.0); Mean Corpuscular Hemoglobin 30.3 pg (27.0-31.0); Mean Corpuscular Volume 91.9 fL (78.0-98.0); Mean Platelet Volume 9.3 fL (7.4-10.4); Platelet Count 149 10x3/uL (130-400); RBC Distribution Width 17.2 % (11.5-14.5)
[2023-11-26] MEDS ORDERED: Dextrose 50% Abboject 50 ML SYRINGE SLOW IVP PRN (13:30)
[2023-11-26] MEDS ORDERED: Glucagon 1 MG/ML KIT SC PRN (13:30)
[2023-11-26] MEDS ORDERED: Insulin Regular, Human 100 UNIT/ML 10 ML VIAL SC PRN (13:30)
[2023-11-26] MEDS ORDERED: Dextrose 5% in Water 1,000 ML IV PRN (13:30)
[2023-11-26 13:34] LABS: Anion Gap 19 mmol/L (10-20); BUN (Urea Nitrogen) 57 mg/dL (8.4-25.7); Calc. Creatinine Clearance 13 mL/min (70-130); Calcium 8.1 mg/dL (7.8-10.44); Carbon Dioxide 19 mmol/L (22-29); Chloride 103 mmol/L (98-107); Estimated GFR 9; Glucose 158 mg/dL (70-105); Potassium 4.4 mmol/L (3.5-5.1); Sodium 137 mmol/L (136-145)
[2023-11-26 13:46] LABS: INR-International Normal Ratio 1.4; Prothrombin Time 17.3 sec (12.0-14.7)
[2023-11-26 13:47] LABS: PTT 39.6 sec (22.9-36.1)
[2023-11-26] MEDS: NS 0.9% w/ 20 MEQ KCL 1,000 ML IV SCH (14:00)
[2023-11-26] MEDS: INSULIN REGULAR IN 0.9 % NACL 100 UNITS in Premix 1 BAG IVPB SCH (14:00)
[2023-11-26] MEDS: Clindamycin/D5W 900 MG in Premix 1 BAG IVPB SCH (14:00)
[2023-11-26] MEDS ORDERED: [UNRECOGNIZED DRUG - OTHER] IVPB PRN (14:21)
[2023-11-26] MEDS ORDERED: VANCOMYCIN IVPB PRN (14:21)
[2023-11-26] MEDS ORDERED: Vancomycin Diaylsis Sliding Scale (Wt 71-99) FS SCH (14:30)
[2023-11-26 15:59] LABS: Vancomycin, Random 16.2 ug/mL (See Comment)
[2023-11-26] MEDS: Vancomycin HCl 750 MG in Sodium Chloride 0.9% 250 ML 250 ML IVPB SCH (17:29)
[2023-11-26 18:27] LABS: Hematocrit 29.6 % (42.0-52.0); Hemoglobin 9.6 g/dL (14.0-18.0)
[2023-11-26 19:28] LABS: Potassium 5.7 mmol/L (3.5-5.1)
[2023-11-26] MEDS: Sodium Chloride 0.9% 1,000 ML IV SCH (19:45)
[2023-11-26] MEDS: Sodium Bicarb 50 mEq/50 ML VIAL IVP SCH (20:14)
[2023-11-26] MEDS: Morphine 2 MG/ML VIAL SLOW IVP PRN (20:19)
[2023-11-26] MEDS: Famotidine/PF 20 mg/2ml Vial SLOW IVP SCH (21:58)
[2023-11-26] MEDS: Atorvastatin Calcium 40 MG TAB PO SCH (21:59)
[2023-11-27 01:01] LABS: Anion Gap 22 mmol/L (10-20); BUN (Urea Nitrogen) 67 mg/dL (8.4-25.7); Calc. Creatinine Clearance 12 mL/min (70-130); Calcium 8.4 mg/dL (7.8-10.44); Carbon Dioxide 19 mmol/L (22-29); Chloride 102 mmol/L (98-107); Estimated GFR 8; Glucose 143 mg/dL (70-105); Potassium 5.5 mmol/L (3.5-5.1); Sodium 137 mmol/L (136-145)
[2023-11-27 01:17] LABS: Actual Bicarbonate (HCO3a) 20.5 mEq/L (22-28); Calcium, Ionized (arterial) 1.04 mmol/L (1.12-1.30); Carboxyhemoglobin (COHb) 0.3 gm% (0.0-3.0); Hematocrit-ABG 30 % (42.0-52.0); Hemoglobin (Hb) 10.3 g/dL (14.0-18.0); pH, Arterial 7.438 (7.35-7.45)
[2023-11-27 01:24] LABS: Puncture Site Arterial Line
[2023-11-27] MEDS: fentaNYL 50 mcg/mL 1 mL Vial SLOW IVP PRN ×2 (01:38→06:04)
[2023-11-27] MEDS: Albumin 25% 25 GM (100 mL) BOT IVPB PRN (02:48)
[2023-11-27 04:44] LABS: #Basophils Less than 0.03 10x3/uL (0.0-0.2); #Eosinphils Less than 0.03 10x3/uL (0.0-0.7); %Basophils 0.1 % (0.0-1.0); %Lymphocytes 3.9 % (21.0-51.0); %Monocytes 10.5 % (0.0-10.0); %Neutrophils 84.6 % (42.0-75.0); Hematocrit 26.1 % (42.0-52.0); Hemoglobin 8.4 g/dL (14.0-18.0); Mean Corpuscular HGB CONC 32.2 g/dL (32.0-36.0); Mean Corpuscular Hemoglobin 30.5 pg (27.0-31.0); Mean Corpuscular Volume 94.9 fL (78.0-98.0); Mean Platelet Volume 9.8 fL (7.4-10.4); Platelet Count 161 10x3/uL (130-400); Red Blood Cell (RBC) Count 2.75 mill/uL (4.70-6.10)
[2023-11-27 04:59] LABS: Anion Gap 23 mmol/L (10-20); BUN (Urea Nitrogen) 69 mg/dL (8.4-25.7); Calc. Creatinine Clearance 11 mL/min (70-130); Calcium 8.6 mg/dL (7.8-10.44); Carbon Dioxide 20 mmol/L (22-29); Chloride 102 mmol/L (98-107); Estimated GFR 8; Glucose 138 mg/dL (70-105); Potassium 5.5 mmol/L (3.5-5.1); Sodium 139 mmol/L (136-145)
[2023-11-27] MEDS ORDERED: Glucagon 1 MG/ML KIT IM PRN (06:44)
[2023-11-27] MEDS ORDERED: Dextrose 50% Abboject 50 ML SYRINGE SLOW IVP PRN (06:44)
[2023-11-27] MEDS ORDERED: Dextrose 5% in Water 1,000 ML IV PRN (06:44)
[2023-11-27] MEDS: Sevelamer Carbonate 800 MG TAB PO SCH (07:35)
[2023-11-27] MEDS: Pantoprazole DR 40 MG TAB PO SCH (07:35)
[2023-11-27] MEDS: Aspirin Chewable 81 MG TAB PO SCH (07:35)
[2023-11-27] MEDS: Calcitriol 0.25 MCG CAP PO SCH (07:35)
[2023-11-27] MEDS: traMADol HCl 50 MG TAB PO PRN (08:34)
[2023-11-27] MEDS ORDERED: Vancomycin 1.5 GM in Sodium Chloride 0.9% 250 ML 300 ML IVPB SCH (09:00)
[2023-11-27 10:03] LABS: Vancomycin, Trough 23.8 ug/mL
[2023-11-27] MEDS: Insulin Lispro 100 UNIT/ML 10 ML VIAL SC PRN (13:12)
[2023-11-27] MEDS ORDERED: Insulin Glargine 30 UNITS/0.3 ML VIAL SC PRN (13:23)
[2023-11-27] MEDS ORDERED: Heparin 10,000 UNITS/ 10 ML VIAL ONE (13:34)
[2023-11-27 14:06] VITALS: BMI 29.5
[2023-11-27] MEDS: Vancomycin 250 MG, Admixture Fee 1 EACH in Sodium Chloride 0.9% 100 ML IVPB SCH (18:38)
[2023-11-28 04:52] LABS: #Basophils Less than 0.03 10x3/uL (0.0-0.2); %Basophils 0.2 % (0.0-1.0); %Eosinophils 0.5 % (0.0-10.0); %Lymphocytes 9.1 % (21.0-51.0); %Monocytes 11.6 % (0.0-10.0); %Neutrophils 77.9 % (42.0-75.0); Hematocrit 24.2 % (42.0-52.0); Mean Corpuscular HGB CONC 33.1 g/dL (32.0-36.0); Mean Corpuscular Hemoglobin 30.3 pg (27.0-31.0); Mean Corpuscular Volume 91.7 fL (78.0-98.0); Mean Platelet Volume 10.2 fL (7.4-10.4); Platelet Count 152 10x3/uL (130-400); RBC Distribution Width 17.2 % (11.5-14.5); Red Blood Cell (RBC) Count 2.64 mill/uL (4.70-6.10)
[2023-11-28 04:58] LABS: Anion Gap 18 mmol/L (10-20); BUN (Urea Nitrogen) 51 mg/dL (8.4-25.7); Calc. Creatinine Clearance 16 mL/min (70-130); Calcium 8.9 mg/dL (7.8-10.44); Carbon Dioxide 25 mmol/L (22-29); Chloride 100 mmol/L (98-107); Estimated GFR 11; Glucose 132 mg/dL (70-105); Potassium 4.6 mmol/L (3.5-5.1); Sodium 138 mmol/L (136-145)
[2023-11-28] MEDS: Sevelamer Carbonate 800 MG TAB PO SCH (14:32)
[2023-11-29 04:51] LABS: #Basophils Less than 0.03 10x3/uL (0.0-0.2); %Basophils 0.2 % (0.0-1.0); %Eosinophils 1.5 % (0.0-10.0); %Monocytes 10.1 % (0.0-10.0); %Neutrophils 77.7 % (42.0-75.0); Hematocrit 25.4 % (42.0-52.0); Hemoglobin 8.2 g/dL (14.0-18.0); Mean Corpuscular HGB CONC 32.3 g/dL (32.0-36.0); Mean Corpuscular Hemoglobin 30.6 pg (27.0-31.0); Mean Corpuscular Volume 94.8 fL (78.0-98.0); Mean Platelet Volume 9.7 fL (7.4-10.4); Platelet Count 179 10x3/uL (130-400); RBC Distribution Width 17.4 % (11.5-14.5); Red Blood Cell (RBC) Count 2.68 mill/uL (4.70-6.10)
[2023-11-29 05:21] LABS: Anion Gap 19 mmol/L (10-20); BUN (Urea Nitrogen) 80 mg/dL (8.4-25.7); Calc. Creatinine Clearance 12 mL/min (70-130); Calcium 8.8 mg/dL (7.8-10.44); Carbon Dioxide 23 mmol/L (22-29); Chloride 96 mmol/L (98-107); Estimated GFR 8; Glucose 246 mg/dL (70-105); Potassium 4.1 mmol/L (3.5-5.1); Sodium 134 mmol/L (136-145)
[2023-11-29 09:13] LABS: Vancomycin, Trough 17.6 ug/mL
[2023-11-29] MEDS: EPOETIN ALFA-EPBX (ESRD) 10,000 UNITS/ML VIAL IVP SCH (12:45)
[2023-11-29] MEDS ORDERED: Heparin 10,000 UNITS/ 10 ML VIAL ONE (13:44)
[2023-11-29] MEDS: Albumin 5% 12.5 GM (250 mL) BOT IVPB SCH (16:08)
[2023-11-29] MEDS: Vancomycin HCl 750 MG in Sodium Chloride 0.9% 250 ML 250 ML IVPB SCH (17:23)
[2023-11-29] MEDS: Sodium Chloride 0.9% 250 ML IV SCH (19:00)
[2023-11-30 04:31] LABS: #Basophils 0.03 10x3/uL (0.0-0.2); %Basophils 0.3 % (0.0-1.0); %Eosinophils 1.3 % (0.0-10.0); %Lymphocytes 10.7 % (21.0-51.0); %Monocytes 13.7 % (0.0-10.0); %Neutrophils 72.4 % (42.0-75.0); Hematocrit 24.3 % (42.0-52.0); Hemoglobin 7.9 g/dL (14.0-18.0); Mean Corpuscular HGB CONC 32.5 g/dL (32.0-36.0); Mean Corpuscular Hemoglobin 30.3 pg (27.0-31.0); Mean Corpuscular Volume 93.1 fL (78.0-98.0); Mean Platelet Volume 10.1 fL (7.4-10.4); Platelet Count 201 10x3/uL (130-400); RBC Distribution Width 17.2 % (11.5-14.5); Red Blood Cell (RBC) Count 2.61 mill/uL (4.70-6.10)
[2023-11-30 05:28] LABS: Anion Gap 16 mmol/L (10-20); BUN (Urea Nitrogen) 58 mg/dL (8.4-25.7); Calc. Creatinine Clearance 16 mL/min (70-130); Calcium 9.1 mg/dL (7.8-10.44); Carbon Dioxide 26 mmol/L (22-29); Chloride 101 mmol/L (98-107); Estimated GFR 11; Glucose 161 mg/dL (70-105); Potassium 3.9 mmol/L (3.5-5.1); Sodium 139 mmol/L (136-145)
[2023-11-30] MEDS: Bisacodyl 5 MG TAB PO PRN (08:07)
[2023-12-01] MEDS: Acetaminophen 325 MG TAB PO PRN (00:25)
[2023-12-01 04:44] LABS: #Basophils 0.05 10x3/uL (0.0-0.2); %Basophils 0.5 % (0.0-1.0); %Eosinophils 2.4 % (0.0-10.0); %Lymphocytes 13.2 % (21.0-51.0); %Neutrophils 69.5 % (42.0-75.0); Hemoglobin 8.8 g/dL (14.0-18.0); Mean Corpuscular HGB CONC 32.6 g/dL (32.0-36.0); Mean Corpuscular Hemoglobin 29.2 pg (27.0-31.0); Mean Corpuscular Volume 89.7 fL (78.0-98.0); Mean Platelet Volume 9.9 fL (7.4-10.4); Platelet Count 217 10x3/uL (130-400); RBC Distribution Width 19.4 % (11.5-14.5); Red Blood Cell (RBC) Count 3.01 mill/uL (4.70-6.10)
[2023-12-01 04:52] LABS: Anion Gap 15 mmol/L (10-20); BUN (Urea Nitrogen) 104 mg/dL (8.4-25.7); Calc. Creatinine Clearance 13 mL/min (70-130); Carbon Dioxide 25 mmol/L (22-29); Chloride 101 mmol/L (98-107); Estimated GFR 8; Glucose 174 mg/dL (70-105); Potassium 4.1 mmol/L (3.5-5.1); Sodium 137 mmol/L (136-145)
[2023-12-01] MEDS ORDERED: Senokot S 8.6-50 MG TAB PO PRN (08:38)
[2023-12-01] MEDS: Polyethylene Glycol 3350 17 GM Packet PO SCH (09:04)
[2023-12-01 15:45] VITALS: BP 144/69
[2023-12-01] MEDS: Carvedilol 3.125 MG TAB PO SCH (19:39)
[2023-12-02] MEDS: traMADol HCl 50 MG TAB PO PRN (02:14)
[2023-12-02 04:54] LABS: #Basophils 0.04 10x3/uL (0.0-0.2); %Basophils 0.3 % (0.0-1.0); %Eosinophils 1.8 % (0.0-10.0); %Lymphocytes 9.1 % (21.0-51.0); %Neutrophils 76.8 % (42.0-75.0); Hematocrit 27.9 % (42.0-52.0); Mean Corpuscular HGB CONC 32.3 g/dL (32.0-36.0); Mean Corpuscular Hemoglobin 29.7 pg (27.0-31.0); Mean Corpuscular Volume 92.1 fL (78.0-98.0); Platelet Count 259 10x3/uL (130-400); RBC Distribution Width 19.4 % (11.5-14.5); Red Blood Cell (RBC) Count 3.03 mill/uL (4.70-6.10)
[2023-12-02 05:13] LABS: Anion Gap 18 mmol/L (10-20); BUN (Urea Nitrogen) 123 mg/dL (8.4-25.7); Calc. Creatinine Clearance 11 mL/min (70-130); Calcium 9.5 mg/dL (7.8-10.44); Carbon Dioxide 24 mmol/L (22-29); Chloride 99 mmol/L (98-107); Estimated GFR 7; Glucose 168 mg/dL (70-105); Potassium 4.5 mmol/L (3.5-5.1); Sodium 136 mmol/L (136-145)
[2023-12-02 09:02] LABS: Vancomycin, Trough 23.7 ug/mL
[2023-12-02] MEDS ORDERED: Heparin 10,000 UNITS/ 10 ML VIAL ONE (10:15)
[2023-12-02] MEDS: Albumin 25% 25 GM (100 mL) BOT IVPB PRN (10:31)
[2023-12-02] MEDS: Vancomycin 250 MG in Sodium Chloride 0.9% 100 ML IVPB SCH (12:37)
[2023-12-02] MEDS: Magnesium Citrate 300 ML BOT PO SCH (12:38)
[2023-12-02 12:49] VITALS: TEMP 98.2
[2023-12-05 14:44] LABS: Analyzer IN Cardio OR; Base Excess (BEa) -0.2 mEq/L (-2.0 to +3.0); CO2 Tension 43.2 mmHg (35.0-45.0); Calcium, Ionized (arterial) 0.96 mmol/L (1.12-1.30); Carboxyhemoglobin (COHb) 0.6 gm% (0.0-3.0); Hematocrit-ABG 26 % (42.0-52.0); O2 Tension (PaO2), arterial 351.2 mmHg (> 80.0); Potassium - ABG Lab 4.29 mmol/L (3.70-5.30)
[2023-12-05 14:44] LABS: Actual Bicarbonate (HCO3a) 22.7 mEq/L (22-28); Analyzer IN Cardio OR; Base Excess (BEa) -1.2 mEq/L (-2.0 to +3.0); CO2 Tension 35.2 mmHg (35.0-45.0); Calcium, Ionized (arterial) 1.05 mmol/L (1.12-1.30); Carboxyhemoglobin (COHb) 0.7 gm% (0.0-3.0); Hematocrit-ABG 34 % (42.0-52.0); Hemoglobin (Hb) 11.5 g/dL (14.0-18.0); O2 Tension (PaO2), arterial 212.1 mmHg (> 80.0); Potassium - ABG Lab 4.71 mmol/L (3.70-5.30); pH, Arterial 7.427 (7.35-7.45)
[2023-12-05 14:44] LABS: Actual Bicarbonate (HCO3a) 22.4 mEq/L (22-28); Analyzer IN Cardio OR; Base Excess (BEa) -0.7 mEq/L (-2.0 to +3.0); CO2 Tension 31.6 mmHg (35.0-45.0); Calcium, Ionized (arterial) 1.05 mmol/L (1.12-1.30); Carboxyhemoglobin (COHb) 0.9 gm% (0.0-3.0); Hematocrit-ABG 33 % (42.0-52.0); Hemoglobin (Hb) 11.2 g/dL (14.0-18.0); O2 Tension (PaO2), arterial 178.6 mmHg (> 80.0); Potassium - ABG Lab 4.49 mmol/L (3.70-5.30); pH, Arterial 7.468 (7.35-7.45)
[2023-12-05 14:44] LABS: Actual Bicarbonate (HCO3a) 22.7 mEq/L (22-28); Analyzer IN Cardio OR; Base Excess (BEa) -1.5 mEq/L (-2.0 to +3.0); Calcium, Ionized (arterial) 0.93 mmol/L (1.12-1.30); Carboxyhemoglobin (COHb) 0.2 gm% (0.0-3.0); Hematocrit-ABG 28 % (42.0-52.0); Hemoglobin (Hb) 9.6 g/dL (14.0-18.0); O2 Tension (PaO2), arterial 365.2 mmHg (> 80.0); Potassium - ABG Lab 4.53 mmol/L (3.70-5.30); pH, Arterial 7.418 (7.35-7.45)
[2023-12-05 14:45] LABS: Actual Bicarbonate (HCO3a) 24.9 mEq/L (22-28); Analyzer IN Cardio OR; CO2 Tension 41.7 mmHg (35.0-45.0); Carboxyhemoglobin (COHb) 0.4 gm% (0.0-3.0); Hematocrit-ABG 26 % (42.0-52.0); Hemoglobin (Hb) 8.8 g/dL (14.0-18.0); O2 Tension (PaO2), arterial 327.6 mmHg (> 80.0); Potassium - ABG Lab 4.92 mmol/L (3.70-5.30); pH, Arterial 7.394 (7.35-7.45)
[2023-12-05 14:45] LABS: Actual Bicarbonate (HCO3a) 24.6 mEq/L (22-28); Analyzer IN Cardio OR; Base Excess (BEa) -1.4 mEq/L (-2.0 to +3.0); Calcium, Ionized (arterial) 1.02 mmol/L (1.12-1.30); Carboxyhemoglobin (COHb) 0.7 gm% (0.0-3.0); Hematocrit-ABG 28 % (42.0-52.0); Hemoglobin (Hb) 9.6 g/dL (14.0-18.0); O2 Tension (PaO2), arterial 287.1 mmHg (> 80.0); Potassium - ABG Lab 5.01 mmol/L (3.70-5.30); pH, Arterial 7.336 (7.35-7.45)
[2023-12-05 14:46] LABS: Actual Bicarbonate (HCO3a) 21.3 mEq/L (22-28); Analyzer IN Cardio OR; Base Excess (BEa) -2.6 mEq/L (-2.0 to +3.0); CO2 Tension 33.3 mmHg (35.0-45.0); Carboxyhemoglobin (COHb) 0.6 gm% (0.0-3.0); Hematocrit-ABG 29 % (42.0-52.0); Hemoglobin (Hb) 9.8 g/dL (14.0-18.0); O2 Tension (PaO2), arterial 336.4 mmHg (> 80.0); Potassium - ABG Lab 4.95 mmol/L (3.70-5.30); pH, Arterial 7.424 (7.35-7.45)
[2023-12-05 14:46] LABS: Puncture Site Arterial Line
[2023-12-05 14:46] LABS: Puncture Site Arterial Line
[2023-12-05 14:47] LABS: Puncture Site Arterial Line
[2023-12-05 14:47] LABS: Puncture Site Arterial Line
[2023-12-05 14:48] LABS: Puncture Site Arterial Line
[2023-12-05 14:48] LABS: Puncture Site Arterial Line
[2023-12-05 14:48] LABS: Puncture Site Arterial Line
== END 2023-12-02 15:37 | disposition home or self-care (01) | DRG 216 ==
LOC: ERS 21:30 → IMCU/EMU 11-22 00:16 → CCU 11-22 15:18
PROVIDERS: ADMIT Emergency Medicine; ATTEND Emergency Medicine
PROC: 30233N1 Transfusion of Nonautologous Red Blood Cells into Peripheral Vein, Percutaneous Approach (ICD-10-PCS; 2023-11-21)
PROC: 3E033XZ Introduction of Vasopressor into Peripheral Vein, Percutaneous Approach (ICD-10-PCS; 2023-11-21)
PROC: B2111ZZ Fluoroscopy of Multiple Coronary Arteries using Low Osmolar Contrast (ICD-10-PCS; principal; 2023-11-22)
PROC: 02RF08N Replacement of Aortic Valve with Zooplastic Tissue, using Rapid Deployment Technique, Open Approach (ICD-10-PCS; 2023-11-22)
PROC: 4A023N7 Measurement of Cardiac Sampling and Pressure, Left Heart, Percutaneous Approach (ICD-10-PCS; 2023-11-22)
PROC: 02UX08Z Supplement Thoracic Aorta, Ascending/Arch with Zooplastic Tissue, Open Approach (ICD-10-PCS; 2023-11-22)
PROC: 02100Z9 Bypass Coronary Artery, One Artery from Left Internal Mammary, Open Approach (ICD-10-PCS; 2023-11-22)
PROC: 021109W Bypass Coronary Artery, Two Arteries from Aorta with Autologous Venous Tissue, Open Approach (ICD-10-PCS; 2023-11-22)
PROC: 06BP4ZZ Excision of Right Saphenous Vein, Percutaneous Endoscopic Approach (ICD-10-PCS; 2023-11-22)
PROC: 02580ZZ Destruction of Conduction Mechanism, Open Approach (ICD-10-PCS; 2023-11-22)
PROC: 02L70CK Occlusion of Left Atrial Appendage with Extraluminal Device, Open Approach (ICD-10-PCS; 2023-11-22)
PROC: 5A1221Z Performance of Cardiac Output, Continuous (ICD-10-PCS; 2023-11-22)
PROC: B2151ZZ Fluoroscopy of Left Heart using Low Osmolar Contrast (ICD-10-PCS; 2023-11-22)
PROC: 4A133R1 Monitoring of Arterial Saturation, Peripheral, Percutaneous Approach (ICD-10-PCS; 2023-11-26)
PROC: 30233J1 Transfusion of Nonautologous Serum Albumin into Peripheral Vein, Percutaneous Approach (ICD-10-PCS; 2023-11-26)
DX: I35.0 Nonrheumatic aortic (valve) stenosis (principal); I21.4 Non-ST elevation (NSTEMI) myocardial infarction; N18.6 End stage renal disease; R57.0 Cardiogenic shock; J96.01 Acute respiratory failure with hypoxia; I50.22 Chronic systolic (congestive) heart failure; I13.2 Hypertensive heart and chronic kidney disease with heart failure and with stage 5 chronic kidney disease, or end stage renal disease; E87.20 Acidosis, unspecified; L03.114 Cellulitis of left upper limb; I47.20 Ventricular tachycardia, unspecified; I25.10 Atherosclerotic heart disease of native coronary artery without angina pectoris; D64.9 Anemia, unspecified; Z99.2 Dependence on renal dialysis; D63.1 Anemia in chronic kidney disease; E83.51 Hypocalcemia; E87.5 Hyperkalemia; E88.09 Other disorders of plasma-protein metabolism, not elsewhere classified; I73.9 Peripheral vascular disease, unspecified; Z66 Do not resuscitate; E87.6 Hypokalemia; E11.22 Type 2 diabetes mellitus with diabetic chronic kidney disease; E11.65 Type 2 diabetes mellitus with hyperglycemia; I48.0 Paroxysmal atrial fibrillation; K59.00 Constipation, unspecified
CPT/HCPCS: 36415; 36416; 36430; 71045; 71275; 74174; 80048; 80053; 80061; 80202; 81001; 82274; 82607; 82728; 82746; 82805; 83036; 83540; 83550; 83605; 83690; 83735; 84100; 84443; 84484; 85007; 85025; 85027; 85046; 85060; 85610; 85730; 86850; 86860; 86870; 86880; 86900; 86901; 86922; 87040; 90935; 93005; 93010; 93306; 93454; 93798; 94002; 94003; 96361; 96365; 96375; 96376; 97139; A4311; A4648; C1713; C1751; C1769; C1776; C1887; C1889; C1894; G0257; J0153; J0171; J0282; J0461; J0613; J0665; J1100; J1644; J1815; J2001; J2250; J2260; J2272; J2405; J2720; J3010; J3370; J3371; J3475; J3480; J3490; J7030; J7050; J7070; P9016; P9045; P9047; Q5105; Q9967; S0017

== ENCOUNTER 2024-01-31 10:33 | Observation (INO) | payer MEDICARE, MEDICAID ==
[2024-01-31 11:08] LABS: #Basophils 0.07 10x3/uL (0.0-0.2); %Basophils 0.8 % (0.0-1.0); %Eosinophils 1.4 % (0.0-10.0); %Lymphocytes 10.6 % (21.0-51.0); %Monocytes 9.1 % (0.0-10.0); %Neutrophils 77.8 % (42.0-75.0); Hematocrit 35.3 % (42.0-52.0); Hemoglobin 11.4 g/dL (14.0-18.0); Mean Corpuscular HGB CONC 32.3 g/dL (32.0-36.0); Mean Corpuscular Hemoglobin 30.9 pg (27.0-31.0); Mean Corpuscular Volume 95.7 fL (78.0-98.0); Mean Platelet Volume 9.3 fL (7.4-10.4); Platelet Count 253 10x3/uL (130-400); RBC Distribution Width 19.2 % (11.5-14.5); Red Blood Cell (RBC) Count 3.69 mill/uL (4.70-6.10)
[2024-01-31 11:31] LABS: ALT (SGPT) 18 U/L (8-55); AST (SGOT) 32 U/L (5-34); Albumin 3.5 g/dL (3.4-4.8); Alkaline Phosphatase 95 U/L (40-110); Anion Gap 19 mmol/L (10-20); BUN (Urea Nitrogen) 47 mg/dL (8.4-25.7); Bilirubin, Total 0.7 mg/dL (0.2-1.2); Calc. Creatinine Clearance 0 mL/min (70-130); Calcium 9.3 mg/dL (7.8-10.44); Carbon Dioxide 26 mmol/L (23-31); Chloride 96 mmol/L (98-107); Estimated GFR 13; Globulin 4.5 g/dL (2.4-3.5); Glucose 110 mg/dL (80-115); Potassium 4.2 mmol/L (3.5-5.1); Sodium 137 mmol/L (136-145)
[2024-01-31 11:46] LABS: Troponin I 0.476 ng/mL (< 0.028)
[2024-01-31] MEDS ORDERED: Aspirin Chewable 81 MG TAB ONE (12:32)
[2024-01-31] MEDS ORDERED: Glucagon 1 MG/ML KIT IM PRN (12:53)
[2024-01-31] MEDS ORDERED: Dextrose 50% Abboject 50 ML SYRINGE SLOW IVP PRN (12:53)
[2024-01-31] MEDS ORDERED: Dextrose 5% in Water 1,000 ML IV PRN (12:53)
[2024-01-31] MEDS ORDERED: Insulin Lispro 100 UNIT/ML 10 ML VIAL SC PRN (12:56)
[2024-01-31] MEDS ORDERED: Acetaminophen 325 MG TAB PO PRN (13:28)
[2024-01-31] MEDS ORDERED: traMADol HCl 50 MG TAB PO PRN (13:28)
[2024-01-31 14:01] LABS: Critical Call Chem Troponin I RESULT DECREASING; Troponin I 0.432 ng/mL (< 0.028)
[2024-01-31 16:01] VITALS: BMI 26.9
[2024-01-31] MEDS: Sevelamer Carbonate 800 MG TAB PO SCH (16:24)
[2024-01-31] MEDS: Heparin 5,000 UNITS/ML VIAL SC SCH (16:24)
[2024-01-31 20:02] LABS: Troponin I 0.444 ng/mL (< 0.028)
[2024-01-31] MEDS: Amiodarone 200 MG TAB PO SCH (20:16)
[2024-01-31] MEDS: Carvedilol 3.125 MG TAB PO SCH (20:16)
[2024-01-31] MEDS: Atorvastatin Calcium 40 MG TAB PO SCH (20:16)
[2024-01-31] MEDS ORDERED: Melatonin 3 MG TAB PO PRN (22:24)
[2024-01-31] MEDS: diphenhydrAMINE 25 MG CAP PO PRN (22:40)
[2024-02-01 03:47] LABS: #Basophils 0.07 10x3/uL (0.0-0.2); %Eosinophils 1.9 % (0.0-10.0); %Lymphocytes 15.8 % (21.0-51.0); %Monocytes 11.8 % (0.0-10.0); %Neutrophils 68.9 % (42.0-75.0); Hematocrit 30.8 % (42.0-52.0); Hemoglobin 9.7 g/dL (14.0-18.0); Mean Corpuscular HGB CONC 31.5 g/dL (32.0-36.0); Mean Corpuscular Volume 98.4 fL (78.0-98.0); Mean Platelet Volume 9.4 fL (7.4-10.4); Platelet Count 242 10x3/uL (130-400); RBC Distribution Width 19.4 % (11.5-14.5); Red Blood Cell (RBC) Count 3.13 mill/uL (4.70-6.10)
[2024-02-01 04:05] LABS: Phosphorus 4.2 mg/dL (2.3-4.7)
[2024-02-01 04:08] LABS: ALT (SGPT) 13 U/L (8-55); AST (SGOT) 18 U/L (5-34); Albumin 3.1 g/dL (3.4-4.8); Alkaline Phosphatase 79 U/L (40-110); Anion Gap 17 mmol/L (10-20); BUN (Urea Nitrogen) 62 mg/dL (8.4-25.7); Bilirubin, Total 0.5 mg/dL (0.2-1.2); Calc. Creatinine Clearance 13 mL/min (70-130); Calcium 8.8 mg/dL (7.8-10.44); Carbon Dioxide 27 mmol/L (23-31); Chloride 96 mmol/L (98-107); Estimated GFR 9; Globulin 3.7 g/dL (2.4-3.5); Glucose 205 mg/dL (80-115); Potassium 4.2 mmol/L (3.5-5.1); Protein, Total 6.8 g/dL (5.8-8.1); Sodium 136 mmol/L (136-145)
[2024-02-01] MEDS: Insulin Lispro 100 UNIT/ML 10 ML VIAL SC PRN (06:09)
[2024-02-01] MEDS: Aspirin 81 mg Enteric Coated Tablet PO SCH (09:23)
[2024-02-01] MEDS ORDERED: Heparin 10,000 UNITS/ 10 ML VIAL ONE (11:03)
[2024-02-01] MEDS: diphenhydrAMINE 25 MG CAP PO PRN (21:07)
[2024-02-02 04:37] LABS: #Basophils 0.06 10x3/uL (0.0-0.2); %Basophils 0.9 % (0.0-1.0); %Eosinophils 2.6 % (0.0-10.0); %Neutrophils 61.1 % (42.0-75.0); Hematocrit 30.7 % (42.0-52.0); Hemoglobin 9.7 g/dL (14.0-18.0); Mean Corpuscular HGB CONC 31.6 g/dL (32.0-36.0); Mean Corpuscular Hemoglobin 31.5 pg (27.0-31.0); Mean Corpuscular Volume 99.7 fL (78.0-98.0); Mean Platelet Volume 9.1 fL (7.4-10.4); Platelet Count 250 10x3/uL (130-400); RBC Distribution Width 19.2 % (11.5-14.5); Red Blood Cell (RBC) Count 3.08 mill/uL (4.70-6.10)
[2024-02-02 04:54] LABS: Phosphorus 4.8 mg/dL (2.3-4.7)
[2024-02-02 04:59] LABS: ALT (SGPT) 16 U/L (8-55); AST (SGOT) 16 U/L (5-34); Albumin 3.1 g/dL (3.4-4.8); Alkaline Phosphatase 84 U/L (40-110); Anion Gap 16 mmol/L (10-20); BUN (Urea Nitrogen) 52 mg/dL (8.4-25.7); Bilirubin, Total 0.4 mg/dL (0.2-1.2); Calc. Creatinine Clearance 0 mL/min (70-130); Calcium 8.8 mg/dL (7.8-10.44); Carbon Dioxide 25 mmol/L (23-31); Chloride 101 mmol/L (98-107); Estimated GFR 9; Globulin 3.6 g/dL (2.4-3.5); Glucose 149 mg/dL (80-115); Potassium 3.9 mmol/L (3.5-5.1); Protein, Total 6.7 g/dL (5.8-8.1); Sodium 138 mmol/L (136-145)
[2024-02-02] MEDS ORDERED: Heparin 10,000 UNITS/ 10 ML VIAL ONE (11:06)
[2024-02-02 18:10] VITALS: BP 106/54; TEMP 98.3
[2024-02-03] MEDS ORDERED: Calcitriol 0.25 MCG CAP PO SCH (09:00)
[2024-02-11] MEDS ORDERED: Amiodarone 200 MG TAB PO SCH (09:00)
== END 2024-02-02 18:13 | disposition home or self-care (01) ==
LOC: ERS 10:33 → OBS 15:43
PROVIDERS: ADMIT Family Medicine; ATTEND Family Medicine
PROC: B24BZZZ Ultrasonography of Heart with Aorta (ICD-10-PCS; principal; 2024-02-01)
DX: I48.0 Paroxysmal atrial fibrillation (principal); I35.0 Nonrheumatic aortic (valve) stenosis; I42.0 Dilated cardiomyopathy; I25.10 Atherosclerotic heart disease of native coronary artery without angina pectoris; I73.9 Peripheral vascular disease, unspecified; I13.2 Hypertensive heart and chronic kidney disease with heart failure and with stage 5 chronic kidney disease, or end stage renal disease; I50.9 Heart failure, unspecified; N18.6 End stage renal disease; E11.22 Type 2 diabetes mellitus with diabetic chronic kidney disease; D63.1 Anemia in chronic kidney disease; E78.5 Hyperlipidemia, unspecified; Z99.2 Dependence on renal dialysis; Z95.1 Presence of aortocoronary bypass graft; Z88.0 Allergy status to penicillin; Z88.8 Allergy status to other drugs, medicaments and biological substances; Z79.82 Long term (current) use of aspirin; Z79.899 Other long term (current) drug therapy
CPT/HCPCS: 71045; 80053 ×3; 82962 ×3; 83880; 84100 ×2; 84484 ×2; 85025 ×3; 93005; 93306; 94760; 96372 ×3; 99285; G0378 ×4; J1644 ×5; J1815; 36415; 36416; 90935; G0257

== ENCOUNTER 2024-05-01 11:12 | Emergency (ER) | payer MEDICARE, MEDICAID ==
[2024-05-01] MEDS ORDERED: Iopamidol-370 76% 500 ML MDV (1 ML CHARGE) ONE (11:18)
[2024-05-01] MEDS ORDERED: Sodium Chloride 0.9% 100 ML ONE (14:24)
[2024-05-01] MEDS ORDERED: Cefepime 2 GM VIAL ONE (14:24)
[2024-05-01] MEDS ORDERED: Vancomycin 1 GM/200 ML (FROZEN) BAG ONE (14:24)
[2024-05-01 14:27] LABS: #Basophils 0.07 10x3/uL (0.0-0.2); %Eosinophils 1.6 % (0.0-10.0); %Lymphocytes 11.5 % (21.0-51.0); %Monocytes 12.4 % (0.0-10.0); %Neutrophils 72.9 % (42.0-75.0); Hematocrit 30.8 % (42.0-52.0); Hemoglobin 9.7 g/dL (14.0-18.0); Mean Corpuscular HGB CONC 31.5 g/dL (32.0-36.0); Mean Corpuscular Hemoglobin 31.2 pg (27.0-31.0); Mean Platelet Volume 9.5 fL (7.4-10.4); Platelet Count 182 10x3/uL (130-400); RBC Distribution Width 21.9 % (11.5-14.5); Red Blood Cell (RBC) Count 3.11 mill/uL (4.70-6.10)
[2024-05-01 14:43] LABS: ALT (SGPT) 24 U/L (Less than 45); AST (SGOT) 39 U/L (11-34); Albumin 3.8 g/dL (3.1-4.5); Alkaline Phosphatase 129 U/L (40-110); Anion Gap 18 mmol/L (10-20); BUN (Urea Nitrogen) 30 mg/dL (8.4-25.7); Bilirubin, Total 1.1 mg/dL (0.3-1.2); Calc. Creatinine Clearance 0 mL/min (70-130); Calcium 9.4 mg/dL (7.8-10.44); Carbon Dioxide 28 mmol/L (23-31); Chloride 98 mmol/L (98-107); Estimated GFR 15; Globulin 3.8 g/dL (2.4-3.5); Glucose 95 mg/dL (80-115); Potassium 4.5 mmol/L (3.5-5.1); Protein, Total 7.6 g/dL (5.8-8.1); Sodium 139 mmol/L (136-145)
== END 2024-05-01 21:44 | disposition short-term general hospital (02) ==
LOC: ERS 11:12
DX: I70.201 Unspecified atherosclerosis of native arteries of extremities, right leg (principal); M86.9 Osteomyelitis, unspecified; E11.621 Type 2 diabetes mellitus with foot ulcer; L97.419 Non-pressure chronic ulcer of right heel and midfoot with unspecified severity; E11.22 Type 2 diabetes mellitus with diabetic chronic kidney disease; N18.6 End stage renal disease; I50.9 Heart failure, unspecified; Z99.2 Dependence on renal dialysis; Z79.82 Long term (current) use of aspirin; Z79.899 Other long term (current) drug therapy
CPT/HCPCS: 73630; 75635; 80053; 83605; 85025; 86141; 87040; 87070; 87077; 87149 ×2; 87205; J0692; J3370; Q9967; 87186; 96365; 96375